=== PATIENT | female | born 1955 | race Caucasian/White ===

== ENCOUNTER → 2018-05-23 07:50 | Outpatient (CLI) | payer OTHER, SELFPAY ==
[2018-05-23 08:53] LABS: Add Manual Diff / Slide Review NO; Basophils Percent Auto 0.5 % (0-2); Eosinophils Percent Auto 3.1 % (2-4); Hematocrit 44.1 % (36-46); Hemoglobin 15.1 g/dL (12.0-16.0); Lymphocytes Percent Auto 20.1 % (25-40); Mean Corpuscular HGB Conc 34.2 % (30-36); Mean Corpuscular Hemoglobin 29.4 PG (26-34); Mean Corpuscular Volume 85.9 fL (80-100); Monocytes Percent Auto 7.5 % (3-14); Neutrophils Absolute Auto 5500 /uL (3000-5900); Neutrophils Percent Auto 68.8 % (50-75); Platelet Count 179 X10^3/uL (150-400); Red Blood Cell Count 5.13 X10^6/uL (4.0-5.2); Red Cell Distribution Width 13.7 % (11.6-14.8)
[2018-05-23 09:04] LABS: Alanine Aminotransferase 54 IU/L (9-52); Albumin 4.3 g/dL (3.5-5.0); Albumin Globulin Ratio 1.5 (1.0-2.8); Alkaline Phosphatase 64 U/L (38-126); Aspartate Aminotransferase 33 IU/L (14-36); BUN Creatinine Ratio 18.8 (6-22); Bilirubin Total 0.6 mg/dL (0.2-1.3); Blood Urea Nitrogen 15 mg/dL (7-17); Calcium 9.2 mg/dL (8.4-10.2); Carbon Dioxide 29 mmol/L (22-32); Chloride 102 mmol/L (98-107); Estimated Glomerular Filt Rate > 60.0 mL/min (>60); Globulin 2.8 g/dL (1.7-4.1); Glucose 132 mg/dL (80-110); HEMOLYSIS < 15 (0-50); Potassium 4.2 mmol/L (3.4-5.1); Sodium 143 mmol/L (137-145); Total Protein 7.1 g/dL (6.3-8.2)
[2018-05-23 14:18] LABS: Cholesterol 141 mg/dL (140-199); HDL Cholesterol 39 mg/dL (40-60); LDL Cholesterol Calculated 79 mg/dL (<100); Triglycerides 116 mg/dL (35-150)
[2018-05-23 14:35] LABS: Vitamin D 25 Hydroxy (D3) 21.6 ng/mL (30.0-100.0)
[2018-05-24 16:04] LABS: Hemoglobin A1C% w Est Avg Glu 6.2 % (4.0-6.0)
== END ==
PROVIDERS: PCP Family Medicine; Visit Provider Family Medicine
DX: I10 Essential (primary) hypertension (principal); E78.5 Hyperlipidemia, unspecified; E55.9 Vitamin D deficiency, unspecified; E66.9 Obesity, unspecified; R73.09 Other abnormal glucose
CPT/HCPCS: 36415; 80053; 80061; 82306; 83036; 85025

== ENCOUNTER → 2018-11-17 12:39 | Outpatient (CLI) | payer OTHER, SELFPAY ==
[2018-11-17 13:19] LABS: Hemoglobin A1C% w Est Avg Glu 5.9 % (4.0-6.0)
[2018-11-17 15:10] LABS: Vitamin D 25 Hydroxy (D3) 34.9 ng/mL (30.0-100.0)
== END ==
PROVIDERS: PCP Family Medicine; Visit Provider Family Medicine
DX: R73.03 Prediabetes (principal); R79.89 Other specified abnormal findings of blood chemistry
CPT/HCPCS: 36415; 82306; 83036

== ENCOUNTER 2018-11-23 10:59 | Emergency (ER) | payer OTHER, SELFPAY ==
[2018-11-23 11:08] VITALS: BP 200/100; PULSE 72; RESP 20; TEMP 36.5; O2SAT 99; BMI 41.8
--- NOTE | 2018-11-23 11:21 | DI.RAD.S_ITS ---
PROCEDURE: XR CHEST 1V INDICATIONS: chest pain TECHNIQUE: One view of the chest was acquired. COMPARISON: [facility], , CHEST 2 VIEW, 05/18/2011, 9:49. FINDINGS: Surgical changes and devices: None. Lungs and pleura: Lungs are clear. No pleural effusions or pneumothorax. Mediastinum: Mediastinal contours appear normal. Heart size is normal. Bones and chest wall: No suspicious bony lesions. Overlying soft tissues appear unremarkable. IMPRESSION: Normal for age, source of current chest pain symptoms is not seen. Dictated by: David Welsh M.D. on 11/23/2018 at 11:49 Approved by: David Welsh M.D. on 11/23/2018 at 11:49
[2018-11-23 11:43] VITALS: BP 164/72; PULSE 69; RESP 17; O2SAT 98
[2018-11-23 11:50] LABS: Add Manual Diff / Slide Review NO; Basophils Absolute Auto 100 /uL (0-100); Basophils Percent Auto 1.1 % (0-2); Eosinophils Absolute Auto 200 /uL (0-450); Eosinophils Percent Auto 2.2 % (2-4); Hematocrit 45.3 % (36-46); Hemoglobin 15.4 g/dL (12.0-16.0); Lymphocytes Absolute Auto 1500 /uL (1100-4500); Lymphocytes Percent Auto 16.5 % (25-40); Mean Corpuscular Hemoglobin 29.1 PG (26-34); Mean Corpuscular Volume 85.5 fL (80-100); Monocytes Absolute Auto 600 /uL (0-900); Monocytes Percent Auto 6.9 % (3-14); Neutrophils Absolute Auto 6500 /uL (1500-7000); Neutrophils Percent Auto 73.3 % (50-75); Platelet Count 193 X10^3/uL (150-400); Red Cell Distribution Width 13.7 % (11.6-14.8); White Blood Cell Count 8.9 X10^3/uL (4.5-11.0)
[2018-11-23 11:59] LABS: INR 1.1 (0.9-1.3); Prothrombin Time 12.7 SECONDS (10.1-12.7)
[2018-11-23 12:02] LABS: PTT Partial Thromboplastin Tim 34 SECONDS (26.4-36.2)
[2018-11-23 12:04] LABS: Alanine Aminotransferase 45 IU/L (9-52); Albumin 4.3 g/dL (3.5-5.0); Albumin Globulin Ratio 1.4 (1.0-2.8); Alkaline Phosphatase 85 U/L (38-126); Aspartate Aminotransferase 30 IU/L (14-36); BUN Creatinine Ratio 21.4 (6-22); Bilirubin Total 0.5 mg/dL (0.2-1.3); Blood Urea Nitrogen 15 mg/dL (7-17); Calcium 9.4 mg/dL (8.4-10.2); Carbon Dioxide 28 mmol/L (22-32); Chloride 102 mmol/L (98-107); Creatine Kinase 157 U/L (30-135); Estimated Glomerular Filt Rate > 60.0 mL/min (>60); Glucose 120 mg/dL (80-110); HEMOLYSIS < 15 (0-50); Lipase 82 U/L (23-300); Potassium 4.1 mmol/L (3.4-5.1); Sodium 140 mmol/L (137-145); Total Protein 7.3 g/dL (6.3-8.2)
[2018-11-23 12:16] LABS: Troponin I < 0.012 ng/mL (0.01-0.034)
[2018-11-23 12:19] LABS: CKMB % Relative Index 1.2 % (1.5-5.0); Creatine Kinase MB 1.94 ng/mL (<2.37)
[2018-11-23 12:30] VITALS: BP 164/69; PULSE 80; RESP 18; O2SAT 98
--- NOTE | 2018-11-23 12:47 | DI.CT.S_ITS ---
PROCEDURE: CT HEAD/BRAIN WO CON INDICATIONS: htnsive, headache TECHNIQUE: Noncontrast 4.5 mm thick angled axial sections acquired from the foramen magnum to the vertex, with coronal and sagittal reformats. For radiation dose reduction, the following was used: automated exposure control, adjustment of mA and/or kV according to patient size. COMPARISON: None. FINDINGS: Image quality: Excellent. CSF spaces: Basal cisterns are patent. No extra-axial fluid collections. Ventricles are normal in size and shape. Brain: No midline shift. No intracranial masses or hemorrhage. Costa-white matter interface is normal. Skull and face: Calvarium and visualized facial bones are intact, without suspicious lesions. Sinuses: Visualized sinuses and mastoids are clear. IMPRESSION: No evidence of acute stroke, hemorrhage, or mass. Negative head CT Dictated by: Dre Membreno M.D. on 11/23/2018 at 13:24 Approved by: Dre Membreno M.D. on 11/23/2018 at 13:29
[2018-11-23 14:05] VITALS: BP 119/89; PULSE 71
--- NOTE | 2018-11-23 14:50 | ED.GENADULT ---
HPI - General Adult <Virginia Rawls [employer] ASSEMBLER-BC - Last Filed: 11/23/18 19:13> General Chief complaint: Hypertension Stated complaint: high blood pressure 210 Time Seen by Provider: 11/23/18 12:36 Source: patient Mode of arrival: ambulatory Limitations: no limitations History of Present Illness HPI narrative: The patient is a 63-year-old female nonsmoker with history of hypertension anxiety who presents with a chief complaint of hypertension. She states that her blood pressure was noted to be in the 170s yesterday at her PCP visit. This morning she felt woozy and out of sorts at work. Her blood pressure was taken was found be 210 systolic. She denies any chest pain or shortness of breath. She complains of continued headache and slight dizziness. She denies any thunderclap sensation. She states she was very stressed at work this morning. Related Data Home Medications Medication Instructions Recorded Confirmed aspirin 81 - 162 mg PO QPM #0 02/24/11 11/23/18 Fish Oil 1 cap PO DAILY #0 02/15/13 11/23/18 cholecalciferol (vitamin D3) 2,000 2,000 unit PO DAILY 03/22/18 11/23/18 unit capsule atenolol 100 mg PO DAILY 11/23/18 11/23/18 atorvastatin [Lipitor] 20 mg PO DAILY 11/23/18 11/23/18 epinephrine 0.3 mg IM PRN PRN 11/23/18 11/23/18 losartan 100 mg PO DAILY 11/23/18 11/23/18 triamterene-hydrochlorothiazid 1 tab PO DAILY 11/23/18 11/23/18 Previous Rx's Medication Instructions Recorded Zostavax (PF) 0.5 ml SQ SEE INSTRUCTIONS #1 dose 03/19/17 albuterol sulfate [Ventolin HFA] 2 puff INH Q4HWA #1 ea 08/20/17 alprazolam 0.5 mg tablet 0.5 mg PO SEE INSTRUCTIONS PRN #10 11/24/17 tab fluticasone propionate 1 spray INTRANASAL BID #16 gm 06/15/18 Allergies Allergy/AdvReac Type Severity Reaction Status Date / Time amoxicillin [AMOXICILLIN] Allergy Mild HIVES Verified 11/23/18 11:13 Penicillins [PENICILLINS] Allergy Mild HIVES Verified 11/23/18 11:13 Sulfa (Sulfonamide Allergy Mild HIVES Verified 11/23/18 11:13 Antibiotics) [SULFA (SULFONAMIDE ANTIBIOTICS)] bee venom protein (honey bee) Allergy Unknown tongue Verified 11/23/18 11:13 [BEE VENOM PROTEIN (HONEY pain & BEE)] swelling soy [SOY] Allergy Unknown painful Verified 11/23/18 11:13 tongue Review of Systems <CHARI Ronquillo - Last Filed: 11/23/18 19:13> Review of Systems GENERAL: Denies chills, fatigue, malaise, fever, sweats. HEENT: Denies sinus pain, ear pain, sore throat, difficulty swallowing, dizziness. RESPIRATORY: Denies dyspnea, cough, wheezing, hemoptysis, sputum. CARDIOVASCULAR: Denies chest pain, palpitations, orthopnea, edema, GASTROINTESTINAL: Denies nausea, vomiting, abdominal pain, diarrhea, constipation, melena. : Denies dysuria, frequency, incontinence, hematuria, urinary retention. MUSCULOSKELETAL: denies weakness, joint pain, or bony pain SKIN: Denies rash, skin lesions, or other NEUROLOGIC: See HPI PSYCHIATRIC: No concerning psychosocial issues. 12 point review of systems is negative except for those stated above PFSH <CHARI Ronquillo - Last Filed: 11/23/18 19:13> Medical History Pre-diabetes (Chronic) CRP elevated (Chronic) Endometriosis (Chronic) Hyperlipidemia (Chronic) Hypertension (Chronic) Kidney stones (Chronic) Surgical History History of orthopedic surgery (Resolved) History of tonsillectomy (Resolved) Status post endometrial ablation (Resolved) Status post laparoscopy (Resolved) Family History (Updated 03/15/18 @ 12:53 by Sindhu Felix) Sister Breast cancer Mother Polycythemia vera Family/Other Colorectal cancer Brother Diabetes mellitus Social History marital status: household members: none lives independently: Yes caregiver/support person: No housing: house education level: college occupational status: employed Smoking Status: Never smoker second hand exposure: No alcohol intake: never substance use type: does not use Family History Sister Breast cancer Mother Polycythemia vera Family/Other Colorectal cancer Brother Diabetes mellitus Social History marital status: household members: none lives independently: Yes caregiver/support person: No housing: house education level: college occupational status: employed Smoking Status: Never smoker second hand exposure: No alcohol intake: never substance use type: does not use Exam <CHARI Ronquillo - Last Filed: 11/23/18 19:13> Narrative Exam Narrative: GENERAL: This is a well-nourished, well-developed patient, no acute distress HEAD: Atraumatic. Normocephalic. No temporal or scalp tenderness. EYES: Pupils equal round and reactive. Extraocular motions intact. No scleral icterus. No injection or drainage. ENT: Nose without bleeding, purulent drainage or septal hematoma. Throat without erythema, tonsillar hypertrophy or exudate. Uvula midline. Airway patent. NECK: Trachea midline. No JVD or lymphadenopathy. Supple, nontender, no meningeal signs. CARDIOVASCULAR: Regular rate and rhythm without murmurs, gallops, or rubs. RESPIRATORY: Clear to auscultation. Breath sounds equal bilaterally. No wheezes, rales, or rhonchi. No cough. No increased respiratory effort. No accessory muscle use. GASTROINTESTINAL: Abdomen soft, non-tender, nondistended. No hepato-splenomegaly, or palpable masses. No guarding. EXTREMITIES: No clubbing, cyanosis, or edema. No joint tenderness, effusion, or edema noted. BACK: Nontender without deformity or crepitance. No flank tenderness. NEURO: AOx3. Strength is equal upper and lower extremities bilaterally. Slight mouth droop noted on right side, patient states this is normal for her. No gross cranial nerve deficit. Clear speech. SKIN: No rash or erythema. Initial Vital Signs Initial Vital Signs: Vital Signs Temperature 97.7 F 11/23/18 11:08 Pulse Rate 72 11/23/18 11:08 Respiratory Rate 20 11/23/18 11:08 Blood Pressure 200/100 H 11/23/18 11:08 Pulse Oximetry 99 11/23/18 11:08 <Virginia Macias DO - Last Filed: 11/23/18 19:31> Initial Vital Signs Initial Vital Signs: Vital Signs Temperature 97.7 F 11/23/18 11:08 Pulse Rate 72 11/23/18 11:08 Respiratory Rate 20 11/23/18 11:08 Blood Pressure 200/100 H 11/23/18 11:08 Pulse Oximetry 99 11/23/18 11:08 Course <PATEL Ronquillo-BC - Last Filed: 11/23/18 19:13> Orders Ordered: ED Orders 11/23/18 11:14 EKG-12 Lead Stat 11/23/18 11:21 XR chest 1V Stat 11/23/18 11:40 Complete Blood Count AUTO DIFF Stat Comprehensive Metabolic Panel Stat Lipase Stat Partial Thromboplastin Time Stat Prothrombin Time INR Stat Troponin & CK Cardiac Panel Stat 11/23/18 12:47 CT head/brain wo con Stat 11/23/18 14:50 Troponin & CK Cardiac Panel Stat Vital Signs - 8 hr 11/23/18 11:43 11/23/18 12:30 11/23/18 14:05 Pulse Rate 69 80 71 Respiratory Rate 17 18 Blood Pressure [Left Arm] 164/72 H 164/69 H 119/89 Pulse Oximetry 98 98 11/23/18 14:59 11/23/18 15:50 Pulse Rate 71 70 Respiratory Rate 14 18 Blood Pressure [Left Arm] 155/69 H 148/72 H Pulse Oximetry 98 98 <Virginia Macias DO - Last Filed: 11/23/18 19:31> Orders Ordered: ED Orders 11/23/18 11:14 EKG-12 Lead Stat 11/23/18 11:21 XR chest 1V Stat 11/23/18 11:40 Complete Blood Count AUTO DIFF Stat Comprehensive Metabolic Panel Stat Lipase Stat Partial Thromboplastin Time Stat Prothrombin Time INR Stat Troponin & CK Cardiac Panel Stat 11/23/18 12:47 CT head/brain wo con Stat 11/23/18 14:50 Troponin & CK Cardiac Panel Stat Vital Signs - 8 hr 11/23/18 11:43 11/23/18 12:30 11/23/18 14:05 Pulse Rate 69 80 71 Respiratory Rate 17 18 Blood Pressure [Left Arm] 164/72 H 164/69 H 119/89 Pulse Oximetry 98 98 11/23/18 14:59 11/23/18 15:50 Pulse Rate 71 70 Respiratory Rate 14 18 Blood Pressure [Left Arm] 155/69 H 148/72 H Pulse Oximetry 98 98 Medical Decision Making <Virginia Rawls, D[employer] ASSEMBLER-BC - Last Filed: 11/23/18 19:13> Lab Data Result diagrams: 11/23/18 11:40 11/23/18 11:40 Lab Results 11/23/18 11/23/18 11/23/18 Range/Units 11:40 11:40 11:40 WBC 8.9 (4.5-11.0) X10^3/uL RBC 5.30 H (4.0-5.2) X10^6/uL Hgb 15.4 (12.0-16.0) g/dL Hct 45.3 (36-46) % MCV 85.5 (80-100) fL MCH 29.1 (26-34) PG MCHC 34.0 (30-36) % RDW 13.7 (11.6-14.8) % Plt Count 193 (150-400) X10^3/uL Neut % (Auto) 73.3 (50-75) % Lymph % (Auto) 16.5 L (25-40) % Boone % (Auto) 6.9 (3-14) % Eos % (Auto) 2.2 (2-4) % Baso % (Auto) 1.1 (0-2) % Neut # (Auto) 6500 (9467-5041) /uL Lymph # (Auto) 1500 (1634-9929) /uL Boone # (Auto) 600 (0-900) /uL Eos # (Auto) 200 (0-450) /uL Baso # (Auto) 100 (0-100) /uL PT 12.7 (10.1-12.7) SECONDS INR 1.1 (0.9-1.3) APTT 34 (26.4-36.2) SECONDS Sodium 140 (137-145) mmol/L Potassium 4.1 (3.4-5.1) mmol/L Chloride 102 (98-107) mmol/L Carbon Dioxide 28 (22-32) mmol/L BUN 15 (7-17) mg/dL Creatinine 0.70 (0.52-1.04) mg/dL Estimated GFR > 60.0 (>60) mL/min BUN/Creatinine Ratio 21.4 (6-22) Glucose 120 H (80-110) mg/dL Calcium 9.4 (8.4-10.2) mg/dL Total Bilirubin 0.5 (0.2-1.3) mg/dL AST 30 (14-36) IU/L ALT 45 (9-52) IU/L Alkaline Phosphatase 85 (38-126) U/L Total Creatine Kinase 157 H (30-135) U/L CK-MB (CK-2) 1.94 (<2.37) ng/mL CK-MB (CK-2) Rel Index 1.2 L (1.5-5.0) % Troponin I < 0.012 (0.01-0.034) ng/mL Total Protein 7.3 (6.3-8.2) g/dL Albumin 4.3 (3.5-5.0) g/dL Globulin 3.0 (1.7-4.1) g/dL Albumin/Globulin Ratio 1.4 (1.0-2.8) Lipase 82 (23-300) U/L 11/23/18 Range/Units 14:50 WBC (4.5-11.0) X10^3/uL RBC (4.0-5.2) X10^6/uL Hgb (12.0-16.0) g/dL Hct (36-46) % MCV (80-100) fL MCH (26-34) PG MCHC (30-36) % RDW (11.6-14.8) % Plt Count (150-400) X10^3/uL Neut % (Auto) (50-75) % Lymph % (Auto) (25-40) % Boone % (Auto) (3-14) % Eos % (Auto) (2-4) % Baso % (Auto) (0-2) % Neut # (Auto) (3481-4508) /uL Lymph # (Auto) (6628-6137) /uL Boone # (Auto) (0-900) /uL Eos # (Auto) (0-450) /uL Baso # (Auto) (0-100) /uL PT (10.1-12.7) SECONDS INR (0.9-1.3) APTT (26.4-36.2) SECONDS Sodium (137-145) mmol/L Potassium (3.4-5.1) mmol/L Chloride (98-107) mmol/L Carbon Dioxide (22-32) mmol/L BUN (7-17) mg/dL Creatinine (0.52-1.04) mg/dL Estimated GFR (>60) mL/min BUN/Creatinine Ratio (6-22) Glucose (80-110) mg/dL Calcium (8.4-10.2) mg/dL Total Bilirubin (0.2-1.3) mg/dL AST (14-36) IU/L ALT (9-52) IU/L Alkaline Phosphatase (38-126) U/L Total Creatine Kinase 191 H (30-135) U/L CK-MB (CK-2) 1.75 (<2.37) ng/mL CK-MB (CK-2) Rel Index 0.9 L (1.5-5.0) % Troponin I < 0.012 (0.01-0.034) ng/mL Total Protein (6.3-8.2) g/dL Albumin (3.5-5.0) g/dL Globulin (1.7-4.1) g/dL Albumin/Globulin Ratio (1.0-2.8) Lipase (23-300) U/L Urine Dip Bedside Urine Glucose Negative Bedside Urine Bilirubin - Negative Bedside Urine Ketone - Negative Urine Specific Alvord 1.015 Bedside Urine Occult Blood - Negative Bedside Urine pH 6.5 Bedside Urine Protein +/- 15 Bedside Urine Urobilinogen - Negative Bedside Urine Nitrite - Negative Bedside Urine Leukocytes - Negative Esterase Point of care testing: Urine Dip Bedside Urine Glucose Negative Bedside Urine Bilirubin - Negative Bedside Urine Ketone - Negative Urine Specific Alvord 1.015 Bedside Urine Occult Blood - Negative Bedside Urine pH 6.5 Bedside Urine Protein +/- 15 Bedside Urine Urobilinogen - Negative Bedside Urine Nitrite - Negative Bedside Urine Leukocytes - Negative Esterase Imaging Data Head CT: Radiologist's impression: [address] [address] [address] Scan Report Signed Patient: Flori Powell LMR#: [id number] : 7Acct:[id number] Age/Sex: 63 / FDate of Service: 11/23/18 Loc: ED Accession Number: [id number] Procedure: CT head/brain wo con Ordering Provider: Virginia RawlsBC PROCEDURE: CT HEAD/BRAIN WO CON INDICATIONS: htnsive, headache TECHNIQUE: Noncontrast 4.5 mm thick angled axial sections acquired from the foramen magnum to the vertex, with coronal and sagittal reformats. For radiation dose reduction, the following was used: automated exposure control, adjustment of mA and/or kV according to patient size. COMPARISON: None. FINDINGS: Image quality: Excellent. CSF spaces: Basal cisterns are patent. No extra-axial fluid collections. Ventricles are normal in size and shape. Brain: No midline shift. No intracranial masses or hemorrhage. Costa-white matter interface is normal. Skull and face: Calvarium and visualized facial bones are intact, without suspicious lesions. Sinuses: Visualized sinuses and mastoids are clear. IMPRESSION: No evidence of acute stroke, hemorrhage, or mass. Negative head CT Dictated by: Dre Membreno M.D. on 11/23/2018 at 13:24 Approved by: Dre Membreno M.D. on 11/23/2018 at 13:29 Chest x-ray: Radiologist's impression: Flori Powell 63 F 1955 [place] [address] XRay Report Signed Patient: Flori Powell LMR#: [id number] : 1955cct:[id number] Age/Sex: 63 / FDate of Service: 11/23/18 Loc: ED Accession Number: [id number] Procedure: XR chest 1V Ordering Provider: Virginia Macias D.O. PROCEDURE: XR CHEST 1V INDICATIONS: chest pain TECHNIQUE: One view of the chest was acquired. COMPARISON: [facility], , CHEST 2 VIEW, 05/18/2011, 9:49. FINDINGS: Surgical changes and devices: None. Lungs and pleura: Lungs are clear. No pleural effusions or pneumothorax. Mediastinum: Mediastinal contours appear normal. Heart size is normal. Bones and chest wall: No suspicious bony lesions. Overlying soft tissues appear unremarkable. IMPRESSION: Normal for age, source of current chest pain symptoms is not seen. Dictated by: David Welsh M.D. on 11/23/2018 at 11:49 Approved by: David Welsh M.D. on 11/23/2018 at 11:49 ECG Data Attestation: I personally reviewed and interpreted this ECG as follows: Interpretation: Sinus rhythm. Ventricular rate 69. No ectopy noted. No ST elevation or depression noted. viewed by Dr Macias 11:21 MDM Narrative Medical decision making narrative: The patient is a 63-year-old female who presents with a chief complaint of hypertension earlier today. She has 2 negative troponins, normal head CT normal chest x-ray grossly normal lab work. During her stay in the emergency department, her blood pressure ranged from 130-150 systolic. Upon discharge she felt much improved and expressed desire to go home. I discussed at length that she is to follow up with her primary care provider. Given that her systolic towards the end of her emergency department stay was 130, I did not feel the need to change her blood pressure regimen as well. I did discuss that she needs to follow up with primary care provider. Discussed at length rest at home over the next few days, as well as come back to the emergency department for any acute concerns such as chest pain, shortness of breath concern of heart attack or stroke. <Virginia Macias, DO - Last Filed: 11/23/18 19:31> Lab Data Lab results reviewed: Yes I reviewed the patient's lab results. Lab Results 11/23/18 11/23/18 11/23/18 Range/Units 11:40 11:40 11:40 WBC 8.9 (4.5-11.0) X10^3/uL RBC 5.30 H (4.0-5.2) X10^6/uL Hgb 15.4 (12.0-16.0) g/dL Hct 45.3 (36-46) % MCV 85.5 (80-100) fL MCH 29.1 (26-34) PG MCHC 34.0 (30-36) % RDW 13.7 (11.6-14.8) % Plt Count 193 (150-400) X10^3/uL Neut % (Auto) 73.3 (50-75) % Lymph % (Auto) 16.5 L (25-40) % Boone % (Auto) 6.9 (3-14) % Eos % (Auto) 2.2 (2-4) % Baso % (Auto) 1.1 (0-2) % Neut # (Auto) 6500 (0430-0204) /uL Lymph # (Auto) 1500 (3928-3733) /uL Boone # (Auto) 600 (0-900) /uL Eos # (Auto) 200 (0-450) /uL Baso # (Auto) 100 (0-100) /uL PT 12.7 (10.1-12.7) SECONDS INR 1.1 (0.9-1.3) APTT 34 (26.4-36.2) SECONDS Sodium 140 (137-145) mmol/L Potassium 4.1 (3.4-5.1) mmol/L Chloride 102 (98-107) mmol/L Carbon Dioxide 28 (22-32) mmol/L BUN 15 (7-17) mg/dL Creatinine 0.70 (0.52-1.04) mg/dL Estimated GFR > 60.0 (>60) mL/min BUN/Creatinine Ratio 21.4 (6-22) Glucose 120 H (80-110) mg/dL Calcium 9.4 (8.4-10.2) mg/dL Total Bilirubin 0.5 (0.2-1.3) mg/dL AST 30 (14-36) IU/L ALT 45 (9-52) IU/L Alkaline Phosphatase 85 (38-126) U/L Total Creatine Kinase 157 H (30-135) U/L CK-MB (CK-2) 1.94 (<2.37) ng/mL CK-MB (CK-2) Rel Index 1.2 L (1.5-5.0) % Troponin I < 0.012 (0.01-0.034) ng/mL Total Protein 7.3 (6.3-8.2) g/dL Albumin 4.3 (3.5-5.0) g/dL Globulin 3.0 (1.7-4.1) g/dL Albumin/Globulin Ratio 1.4 (1.0-2.8) Lipase 82 (23-300) U/L 11/23/18 Range/Units 14:50 WBC (4.5-11.0) X10^3/uL RBC (4.0-5.2) X10^6/uL Hgb (12.0-16.0) g/dL Hct (36-46) % MCV (80-100) fL MCH (26-34) PG MCHC (30-36) % RDW (11.6-14.8) % Plt Count (150-400) X10^3/uL Neut % (Auto) (50-75) % Lymph % (Auto) (25-40) % Boone % (Auto) (3-14) % Eos % (Auto) (2-4) % Baso % (Auto) (0-2) % Neut # (Auto) (0564-6671) /uL Lymph # (Auto) (7799-8173) /uL Boone # (Auto) (0-900) /uL Eos # (Auto) (0-450) /uL Baso # (Auto) (0-100) /uL PT (10.1-12.7) SECONDS INR (0.9-1.3) APTT (26.4-36.2) SECONDS Sodium (137-145) mmol/L Potassium (3.4-5.1) mmol/L Chloride (98-107) mmol/L Carbon Dioxide (22-32) mmol/L BUN (7-17) mg/dL Creatinine (0.52-1.04) mg/dL Estimated GFR (>60) mL/min BUN/Creatinine Ratio (6-22) Glucose (80-110) mg/dL Calcium (8.4-10.2) mg/dL Total Bilirubin (0.2-1.3) mg/dL AST (14-36) IU/L ALT (9-52) IU/L Alkaline Phosphatase (38-126) U/L Total Creatine Kinase 191 H (30-135) U/L CK-MB (CK-2) 1.75 (<2.37) ng/mL CK-MB (CK-2) Rel Index 0.9 L (1.5-5.0) % Troponin I < 0.012 (0.01-0.034) ng/mL Total Protein (6.3-8.2) g/dL Albumin (3.5-5.0) g/dL Globulin (1.7-4.1) g/dL Albumin/Globulin Ratio (1.0-2.8) Lipase (23-300) U/L Urine Dip Bedside Urine Glucose Negative Bedside Urine Bilirubin - Negative Bedside Urine Ketone - Negative Urine Specific Alvord 1.015 Bedside Urine Occult Blood - Negative Bedside Urine pH 6.5 Bedside Urine Protein +/- 15 Bedside Urine Urobilinogen - Negative Bedside Urine Nitrite - Negative Bedside Urine Leukocytes - Negative Esterase Point of care testing: Urine Dip Bedside Urine Glucose Negative Bedside Urine Bilirubin - Negative Bedside Urine Ketone - Negative Urine Specific Alvord 1.015 Bedside Urine Occult Blood - Negative Bedside Urine pH 6.5 Bedside Urine Protein +/- 15 Bedside Urine Urobilinogen - Negative Bedside Urine Nitrite - Negative Bedside Urine Leukocytes - Negative Esterase ECG Data Attestation: I personally reviewed and interpreted this ECG as follows: Interpretation: Sinus rhythm, rate of 69 LA 176 QRS of 90 QTC of 413. No obvious ST changes. No priors. Discharge Plan Departure Patient Disposition: Home Clinical Impression: Hypertension Qualifiers: Hypertension type: unspecified Qualified Code(s): I10 - Essential (primary) hypertension Discharge Date/Time: 11/23/18 16:13 Interventions: ED Discharge Assessment Last Done: 11/23/18 16:11 Instructions: DI for High Blood Pressure Activity Restrictions/Additional Instructions: Thank you for trusting us with your care today. Please follow up with primary care provider soon as possible. Today you had a normal chest x-ray, normal head CT, normal lab work including electrolytes, kidney function and 2 sets of negative cardiac enzymes. Your blood pressure has been good throughout your stay in the emergency department. It is so good that I do not want to change her medications in the emergency department at this point time. Please come back to emergency department for any acute concerns such as chest pain, shortness of breath concern of heart attack or stroke Prescriptions: No Action aspirin 81 MG tablet,delayed release (DR/EC) 81 - 162 mg PO QPM Qty: 0 RF: 0 Fish Oil 1 cap PO DAILY Qty: 0 RF: 0 Zostavax (PF) 19,400 UNIT/0.65 ML suspension for reconstitution 0.5 ml SQ SEE INSTRUCTIONS Qty: 1 RF: 0 albuterol sulfate [Ventolin HFA] 90 MCG/PUFF HFA aerosol inhaler 2 puff INH Q4HWA Qty: 1 RF: 4 alprazolam 0.5 mg tablet 0.5 mg PO SEE INSTRUCTIONS PRN (Reason: anxiety) Qty: 10 RF: 0 fluticasone propionate 50 mcg/actuation spray,suspension 1 spray Intranasal BID Qty: 16 RF: 11 cholecalciferol (vitamin D3) 2,000 unit capsule 2,000 unit PO DAILY RF: 0 atorvastatin [Lipitor] 20 mg tablet 20 mg PO DAILY RF: 0 atenolol 100 mg tablet 100 mg PO DAILY RF: 0 triamterene-hydrochlorothiazid 37.5-25 mg tablet 1 tab PO DAILY RF: 0 losartan 100 mg tablet 100 mg PO DAILY RF: 0 epinephrine 0.3 MG/0.3 ML auto-injector 0.3 mg IM PRN PRN (Reason: bee sting) RF: 0 Referrals: Lorena Owens MD [Primary Care Provider] -
--- NOTE | 2018-11-23 14:54 | ED_ITS ---
HPI - General Adult <Virginia Rawls [employer]-BC - Last Filed: 11/23/18 19:13> General Chief complaint: Hypertension Stated complaint: high blood pressure 210 Time Seen by Provider: 11/23/18 12:36 Source: patient Mode of arrival: ambulatory Limitations: no limitations History of Present Illness HPI narrative: The patient is a 63-year-old female nonsmoker with history of hypertension anxiety who presents with a chief complaint of hypertension. She states that her blood pressure was noted to be in the 170s yesterday at her PCP visit. This morning she felt woozy and out of sorts at work. Her blood pressure was taken was found be 210 systolic. She denies any chest pain or shortness of breath. She complains of continued headache and slight dizziness. She denies any thunderclap sensation. She states she was very stressed at work this morning. Related Data Home Medications Medication Instructions Recorded Confirmed aspirin 81 - 162 mg PO QPM #0 02/24/11 11/23/18 Fish Oil 1 cap PO DAILY #0 02/15/13 11/23/18 cholecalciferol (vitamin D3) 2,000 2,000 unit PO DAILY 03/22/18 11/23/18 unit capsule atenolol 100 mg PO DAILY 11/23/18 11/23/18 atorvastatin [Lipitor] 20 mg PO DAILY 11/23/18 11/23/18 epinephrine 0.3 mg IM PRN PRN 11/23/18 11/23/18 losartan 100 mg PO DAILY 11/23/18 11/23/18 triamterene-hydrochlorothiazid 1 tab PO DAILY 11/23/18 11/23/18 Previous Rx's Medication Instructions Recorded Zostavax (PF) 0.5 ml SQ SEE INSTRUCTIONS #1 dose 03/19/17 albuterol sulfate [Ventolin HFA] 2 puff INH Q4HWA #1 ea 08/20/17 alprazolam 0.5 mg tablet 0.5 mg PO SEE INSTRUCTIONS PRN #10 11/24/17 tab fluticasone propionate 1 spray INTRANASAL BID #16 gm 06/15/18 Allergies Allergy/AdvReac Type Severity Reaction Status Date / Time amoxicillin [AMOXICILLIN] Allergy Mild HIVES Verified 11/23/18 11:13 Penicillins [PENICILLINS] Allergy Mild HIVES Verified 11/23/18 11:13 Sulfa (Sulfonamide Allergy Mild HIVES Verified 11/23/18 11:13 Antibiotics) [SULFA (SULFONAMIDE ANTIBIOTICS)] bee venom protein (honey bee) Allergy Unknown tongue Verified 11/23/18 11:13 [BEE VENOM PROTEIN (HONEY pain & BEE)] swelling soy [SOY] Allergy Unknown painful Verified 11/23/18 11:13 tongue Review of Systems <CHARI Ronquillo - Last Filed: 11/23/18 19:13> Review of Systems GENERAL: Denies chills, fatigue, malaise, fever, sweats. HEENT: Denies sinus pain, ear pain, sore throat, difficulty swallowing, diz ziness. RESPIRATORY: Denies dyspnea, cough, wheezing, hemoptysis, sputum. CARDIOVASCULAR: Denies chest pain, palpitations, orthopnea, edema, GASTROINTESTINAL: Denies nausea, vomiting, abdominal pain, diarrhea, constipation, melena. : Denies dysuria, frequency, incontinence, hematuria, urinary retention. MUSCULOSKELETAL: denies weakness, joint pain, or bony pain SKIN: Denies rash, skin lesions, or other NEUROLOGIC: See HPI PSYCHIATRIC: No concerning psychosocial issues. 12 point review of systems is negative except for those stated above PFSH <CHARI Ronquillo - Last Filed: 11/23/18 19:13> Medical History Pre-diabetes (Chronic) CRP elevated (Chronic) Endometriosis (Chronic) Hyperlipidemia (Chronic) Hypertension (Chronic) Kidney stones (Chronic) Surgical History History of orthopedic surgery (Resolved) History of tonsillectomy (Resolved) Status post endometrial ablation (Resolved) Status post laparoscopy (Resolved) Family History (Updated 03/15/18 @ 12:53 by Sindhu Felix) Sister Breast cancer Mother Polycythemia vera Family/Other Colorectal cancer Brother Diabetes mellitus Social History marital status: household members: none lives independently: Yes caregiver/support person: No housing: house education level: college occupational status: employed Smoking Status: Never smoker second hand exposure: No alcohol intake: never substance use type: does not use Family History Sister Breast cancer Mother Polycythemia vera Family/Other Colorectal cancer Brother Diabetes mellitus Social History marital status: household members: none lives independently: Yes caregiver/support person: No housing: house education level: college occupational status: employed Smoking Status: Never smoker second hand exposure: No alcohol intake: never substance use type: does not use Exam <CHARI Ronquillo - Last Filed: 11/23/18 19:13> Narrative Exam Narrative: GENERAL: This is a well-nourished, well-developed patient, no acute distress HEAD: Atraumatic. Normocephalic. No temporal or scalp tenderness. EYES: Pupils equal round and reactive. Extraocular motions intact. No scleral icterus. No injection or drainage. ENT: Nose without bleeding, purulent drainage or septal hematoma. Throat without erythema, tonsillar hypertrophy or exudate. Uvula midline. Airway patent. NECK: Trachea midline. No JVD or lymphadenopathy. Supple, nontender, no meningeal signs. CARDIOVASCULAR: Regular rate and rhythm without murmurs, gallops, or rubs. RESPIRATORY: Clear to auscultation. Breath sounds equal bilaterally. No wheezes, rales, or rhonchi. No cough. No increased respiratory effort. No accessory muscle use. GASTROINTESTINAL: Abdomen soft, non-tender, nondistended. No hepato- splenomegaly, or palpable masses. No guarding. EXTREMITIES: No clubbing, cyanosis, or edema. No joint tenderness, effusion, or edema noted. BACK: Nontender without deformity or crepitance. No flank tenderness. NEURO: AOx3. Strength is equal upper and lower extremities bilaterally. Slight mouth droop noted on right side, patient states this is normal for her. No gross cranial nerve deficit. Clear speech. SKIN: No rash or erythema. Initial Vital Signs Initial Vital Signs: Vital Signs Temperature 97.7 F 11/23/18 11:08 Pulse Rate 72 11/23/18 11:08 Respiratory Rate 20 11/23/18 11:08 Blood Pressure 200/100 H 11/23/18 11:08 Pulse Oximetry 99 11/23/18 11:08 <Virginia Macias DO - Last Filed: 11/23/18 19:31> Initial Vital Signs Initial Vital Signs: Vital Signs Temperature 97.7 F 11/23/18 11:08 Pulse Rate 72 11/23/18 11:08 Respiratory Rate 20 11/23/18 11:08 Blood Pressure 200/100 H 11/23/18 11:08 Pulse Oximetry 99 11/23/18 11:08 Course <PATEL Ronquillo-BC - Last Filed: 11/23/18 19:13> Orders Ordered: ED Orders 11/23/18 11:14 EKG-12 Lead Stat 11/23/18 11:21 XR chest 1V Stat 11/23/18 11:40 Complete Blood Count AUTO DIFF Stat Comprehensive Metabolic Panel Stat Lipase Stat Partial Thromboplastin Time Stat Prothrombin Time INR Stat Troponin & CK Cardiac Panel Stat 11/23/18 12:47 CT head/brain wo con Stat 11/23/18 14:50 Troponin & CK Cardiac Panel Stat Vital Signs - 8 hr 11/23/18 11:43 11/23/18 12:30 11/23/18 14:05 Pulse Rate 69 80 71 Respiratory Rate 17 18 Blood Pressure [Left Arm] 164/72 H 164/69 H 119/89 Pulse Oximetry 98 98 11/23/18 14:59 11/23/18 15:50 Pulse Rate 71 70 Respiratory Rate 14 18 Blood Pressure [Left Arm] 155/69 H 148/72 H Pulse Oximetry 98 98 <Virginia Macias DO - Last Filed: 11/23/18 19:31> Orders Ordered: ED Orders 11/23/18 11:14 EKG-12 Lead Stat 11/23/18 11:21 XR chest 1V Stat 11/23/18 11:40 Complete Blood Count AUTO DIFF Stat Comprehensive Metabolic Panel Stat Lipase Stat Partial Thromboplastin Time Stat Prothrombin Time INR Stat Troponin & CK Cardiac Panel Stat 11/23/18 12:47 CT head/brain wo con Stat 11/23/18 14:50 Troponin & CK Cardiac Panel Stat Vital Signs - 8 hr 11/23/18 11:43 11/23/18 12:30 11/23/18 14:05 Pulse Rate 69 80 71 Respiratory Rate 17 18 Blood Pressure [Left Arm] 164/72 H 164/69 H 119/89 Pulse Oximetry 98 98 11/23/18 14:59 11/23/18 15:50 Pulse Rate 71 70 Respiratory Rate 14 18 Blood Pressure [Left Arm] 155/69 H 148/72 H Pulse Oximetry 98 98 Medical Decision Making <Virginia Curly, [employer] - Last Filed: 11/23/18 19:13> Lab Data Result diagrams: 11/23/18 11:40 11/23/18 11:40 Lab Results 11/23/18 11/23/18 11/23/18 Range/Units 11:40 11:40 11:40 WBC 8.9 (4.5-11.0) X10^3/uL RBC 5.30 H (4.0-5.2) X10^6/uL Hgb 15.4 (12.0-16.0) g/dL Hct 45.3 (36-46) % MCV 85.5 (80-100) fL MCH 29.1 (26-34) PG MCHC 34.0 (30-36) % RDW 13.7 (11.6-14.8) % Plt Count 193 (150-400) X10^3/uL Neut % (Auto) 73.3 (50-75) % Lymph % (Auto) 16.5 L (25-40) % Haskell % (Auto) 6.9 (3-14) % Eos % (Auto) 2.2 (2-4) % Baso % (Auto) 1.1 (0-2) % Neut # (Auto) 6500 (3682-3912) /uL Lymph # (Auto) 1500 (5986-6628) /uL Haskell # (Auto) 600 (0-900) /uL Eos # (Auto) 200 (0-450) /uL Baso # (Auto) 100 (0-100) /uL PT 12.7 (10.1-12.7) SECONDS INR 1.1 (0.9-1.3) APTT 34 (26.4-36.2) SECONDS Sodium 140 (137-145) mmol/L Potassium 4.1 (3.4-5.1) mmol/L Chloride 102 (98-107) mmol/L Carbon Dioxide 28 (22-32) mmol/L BUN 15 (7-17) mg/dL Creatinine 0.70 (0.52-1.04) mg/dL Estimated GFR > 60.0 (>60) mL/min BUN/Creatinine Ratio 21.4 (6-22) Glucose 120 H (80-110) mg/dL Calcium 9.4 (8.4-10.2) mg/dL Total Bilirubin 0.5 (0.2-1.3) mg/dL AST 30 (14-36) IU/L ALT 45 (9-52) IU/L Alkaline Phosphatase 85 (38-126) U/L Total Creatine Kinase 157 H (30-135) U/L CK-MB (CK-2) 1.94 (<2.37) ng/mL CK-MB (CK-2) Rel Index 1.2 L (1.5-5.0) % Troponin I < 0.012 (0.01-0.034) ng/mL Total Protein 7.3 (6.3-8.2) g/dL Albumin 4.3 (3.5-5.0) g/dL Globulin 3.0 (1.7-4.1) g/dL Albumin/Globulin Ratio 1.4 (1.0-2.8) Lipase 82 (23-300) U/L 11/23/18 Range/Units 14:50 WBC (4.5-11.0) X10^3/uL RBC (4.0-5.2) X10^6/uL Hgb (12.0-16.0) g/dL Hct (36-46) % MCV (80-100) fL MCH (26-34) PG MCHC (30-36) % RDW (11.6-14.8) % Plt Count (150-400) X10^3/uL Neut % (Auto) (50-75) % Lymph % (Auto) (25-40) % Haskell % (Auto) (3-14) % Eos % (Auto) (2-4) % Baso % (Auto) (0-2) % Neut # (Auto) (9541-2945) /uL Lymph # (Auto) (6290-5167) /uL Haskell # (Auto) (0-900) /uL Eos # (Auto) (0-450) /uL Baso # (Auto) (0-100) /uL PT (10.1-12.7) SECONDS INR (0.9-1.3) APTT (26.4-36.2) SECONDS Sodium (137-145) mmol/L Potassium (3.4-5.1) mmol/L Chloride (98-107) mmol/L Carbon Dioxide (22-32) mmol/L BUN (7-17) mg/dL Creatinine (0.52-1.04) mg/dL Estimated GFR (>60) mL/min BUN/Creatinine Ratio (6-22) Glucose (80-110) mg/dL Calcium (8.4-10.2) mg/dL Total Bilirubin (0.2-1.3) mg/dL AST (14-36) IU/L ALT (9-52) IU/L Alkaline Phosphatase (38-126) U/L Total Creatine Kinase 191 H (30-135) U/L CK-MB (CK-2) 1.75 (<2.37) ng/mL CK-MB (CK-2) Rel Index 0.9 L (1.5-5.0) % Troponin I < 0.012 (0.01-0.034) ng/mL Total Protein (6.3-8.2) g/dL Albumin (3.5-5.0) g/dL Globulin (1.7-4.1) g/dL Albumin/Globulin Ratio (1.0-2.8) Lipase (23-300) U/L Urine Dip Bedside Urine Glucose Negative Bedside Urine Bilirubin - Negative Bedside Urine Ketone - Negative Urine Specific [place] 1.015 Bedside Urine Occult Blood - Negative Bedside Urine pH 6.5 Bedside Urine Protein +/- 15 Bedside Urine Urobilinogen - Negative Bedside Urine Nitrite - Negative Bedside Urine Leukocytes - Negative Esterase Point of care testing: Urine Dip Bedside Urine Glucose Negative Bedside Urine Bilirubin - Negative Bedside Urine Ketone - Negative Urine Specific [place] 1.015 Bedside Urine Occult Blood - Negative Bedside Urine pH 6.5 Bedside Urine Protein +/- 15 Bedside Urine Urobilinogen - Negative Bedside Urine Nitrite - Negative Bedside Urine Leukocytes - Negative Esterase Imaging Data Head CT: Radiologist's impression: [address] [address] [address] Scan Report Signed Patient: Flori Powell LMR#: [id number] : 7Acct:[id number] Age/Sex: 63 / FDate of Service: 11/23/18 Loc: ED Accession Number: [id number] Procedure: CT head/brain wo con Ordering Provider: Virginia Rawls-BC PROCEDURE: CT HEAD/BRAIN WO CON INDICATIONS: htnsive, headache TECHNIQUE: Noncontrast 4.5 mm thick angled axial sections acquired from the foramen magnum to the vertex, with coronal and sagittal reformats. For radiation dose reduction, the following was used: automated exposure control, adjustment of mA and/or kV according to patient size. COMPARISON: None. FINDINGS: Image quality: Excellent. CSF spaces: Basal cisterns are patent. No extra-axial fluid collections. Ventricles are normal in size and shape. Brain: No midline shift. No intracranial masses or hemorrhage. Costa-white matter interface is normal. Skull and face: Calvarium and visualized facial bones are intact, without suspicious lesions. Sinuses: Visualized sinuses and mastoids are clear. IMPRESSION: No evidence of acute stroke, hemorrhage, or mass. Negative head CT Dictated by: Dre Membreno M.D. on 11/23/2018 at 13:24 Approved by: Dre Membreno M.D. on 11/23/2018 at 13:29 Chest x-ray: Radiologist's impression: Flori Powell 63 F 1955 [place] [address] XRay Report Signed Patient: Flori Powell LMR#: [id number] : 1955cct:[id number] Age/Sex: 63 / FDate of Service: 11/23/18 Loc: ED Accession Number: [id number] Procedure: XR chest 1V Ordering Provider: Virginia Macias D.O. PROCEDURE: XR CHEST 1V INDICATIONS: chest pain TECHNIQUE: One view of the chest was acquired. COMPARISON: [facility], , CHEST 2 VIEW, 05/18/2011, 9:49. FINDINGS: Surgical changes and devices: None. Lungs and pleura: Lungs are clear. No pleural effusions or pneumothorax. Mediastinum: Mediastinal contours appear normal. Heart size is normal. Bones and chest wall: No suspicious bony lesions. Overlying soft tissues appear unremarkable. IMPRESSION: Normal for age, source of current chest pain symptoms is not seen. Dictated by: David Welsh M.D. on 11/23/2018 at 11:49 Approved by: David Welsh M.D. on 11/23/2018 at 11:49 ECG Data Attestation: I personally reviewed and interpreted this ECG as follows: Interpretation: Sinus rhythm. Ventricular rate 69. No ectopy noted. No ST elevation or depression noted. viewed by Dr Macias 11:21 MDM Narrative Medical decision making narrative: The patient is a 63-year-old female who presents with a chief complaint of hypertension earlier today. She has 2 negative troponins, normal head CT normal chest x-ray grossly normal lab work. During her stay in the emergency department, her blood pressure ranged from 130- 150 systolic. Upon discharge she felt much improved and expressed desire to go home. I discussed at length that she is to follow up with her primary care provider. Given that her systolic towards the end of her emergency department stay was 130, I did not feel the need to change her blood pressure regimen as well. I did discuss that she needs to follow up with primary care provider. Di scussed at length rest at home over the next few days, as well as come back to the emergency department for any acute concerns such as chest pain, shortness of breath concern of heart attack or stroke. <Virginia Macias, DO - Last Filed: 11/23/18 19:31> Lab Data Lab results reviewed: Yes I reviewed the patient's lab results. Lab Results 11/23/18 11/23/18 11/23/18 Range/Units 11:40 11:40 11:40 WBC 8.9 (4.5-11.0) X10^3/uL RBC 5.30 H (4.0-5.2) X10^6/uL Hgb 15.4 (12.0-16.0) g/dL Hct 45.3 (36-46) % MCV 85.5 (80-100) fL MCH 29.1 (26-34) PG MCHC 34.0 (30-36) % RDW 13.7 (11.6-14.8) % Plt Count 193 (150-400) X10^3/uL Neut % (Auto) 73.3 (50-75) % Lymph % (Auto) 16.5 L (25-40) % Haskell % (Auto) 6.9 (3-14) % Eos % (Auto) 2.2 (2-4) % Baso % (Auto) 1.1 (0-2) % Neut # (Auto) 6500 (9163-4391) /uL Lymph # (Auto) 1500 (2167-9664) /uL Haskell # (Auto) 600 (0-900) /uL Eos # (Auto) 200 (0-450) /uL Baso # (Auto) 100 (0-100) /uL PT 12.7 (10.1-12.7) SECONDS INR 1.1 (0.9-1.3) APTT 34 (26.4-36.2) SECONDS Sodium 140 (137-145) mmol/L Potassium 4.1 (3.4-5.1) mmol/L Chloride 102 (98-107) mmol/L Carbon Dioxide 28 (22-32) mmol/L BUN 15 (7-17) mg/dL Creatinine 0.70 (0.52-1.04) mg/dL Estimated GFR > 60.0 (>60) mL/min BUN/Creatinine Ratio 21.4 (6-22) Glucose 120 H (80-110) mg/dL Calcium 9.4 (8.4-10.2) mg/dL Total Bilirubin 0.5 (0.2-1.3) mg/dL AST 30 (14-36) IU/L ALT 45 (9-52) IU/L Alkaline Phosphatase 85 (38-126) U/L Total Creatine Kinase 157 H (30-135) U/L CK-MB (CK-2) 1.94 (<2.37) ng/mL CK-MB (CK-2) Rel Index 1.2 L (1.5-5.0) % Troponin I < 0.012 (0.01-0.034) ng/mL Total Protein 7.3 (6.3-8.2) g/dL Albumin 4.3 (3.5-5.0) g/dL Globulin 3.0 (1.7-4.1) g/dL Albumin/Globulin Ratio 1.4 (1.0-2.8) Lipase 82 (23-300) U/L 11/23/18 Range/Units 14:50 WBC (4.5-11.0) X10^3/uL RBC (4.0-5.2) X10^6/uL Hgb (12.0-16.0) g/dL Hct (36-46) % MCV (80-100) fL MCH (26-34) PG MCHC (30-36) % RDW (11.6-14.8) % Plt Count (150-400) X10^3/uL Neut % (Auto) (50-75) % Lymph % (Auto) (25-40) % Haskell % (Auto) (3-14) % Eos % (Auto) (2-4) % Baso % (Auto) (0-2) % Neut # (Auto) (4677-9748) /uL Lymph # (Auto) (1480-9454) /uL Haskell # (Auto) (0-900) /uL Eos # (Auto) (0-450) /uL Baso # (Auto) (0-100) /uL PT (10.1-12.7) SECONDS INR (0.9-1.3) APTT (26.4-36.2) SECONDS Sodium (137-145) mmol/L Potassium (3.4-5.1) mmol/L Chloride (98-107) mmol/L Carbon Dioxide (22-32) mmol/L BUN (7-17) mg/dL Creatinine (0.52-1.04) mg/dL Estimated GFR (>60) mL/min BUN/Creatinine Ratio (6-22) Glucose (80-110) mg/dL Calcium (8.4-10.2) mg/dL Total Bilirubin (0.2-1.3) mg/dL AST (14-36) IU/L ALT (9-52) IU/L Alkaline Phosphatase (38-126) U/L Total Creatine Kinase 191 H (30-135) U/L CK-MB (CK-2) 1.75 (<2.37) ng/mL CK-MB (CK-2) Rel Index 0.9 L (1.5-5.0) % Troponin I < 0.012 (0.01-0.034) ng/mL Total Protein (6.3-8.2) g/dL Albumin (3.5-5.0) g/dL Globulin (1.7-4.1) g/dL Albumin/Globulin Ratio (1.0-2.8) Lipase (23-300) U/L Urine Dip Bedside Urine Glucose Negative Bedside Urine Bilirubin - Negative Bedside Urine Ketone - Negative Urine Specific [place] 1.015 Bedside Urine Occult Blood - Negative Bedside Urine pH 6.5 Bedside Urine Protein +/- 15 Bedside Urine Urobilinogen - Negative Bedside Urine Nitrite - Negative Bedside Urine Leukocytes - Negative Esterase Point of care testing: Urine Dip Bedside Urine Glucose Negative Bedside Urine Bilirubin - Negative Bedside Urine Ketone - Negative Urine Specific [place] 1.015 Bedside Urine Occult Blood - Negative Bedside Urine pH 6.5 Bedside Urine Protein +/- 15 Bedside Urine Urobilinogen - Negative Bedside Urine Nitrite - Negative Bedside Urine Leukocytes - Negative Esterase ECG Data Attestation: I personally reviewed and interpreted this ECG as follows: Interpretation: Sinus rhythm, rate of 69 AR 176 QRS of 90 QTC of 413. No obvious ST changes. No priors. Discharge Plan Departure Patient Disposition: Home Clinical Impression: Hypertension Qualifiers: Hypertension type: unspecified Qualified Code(s): I10 - Essential (primary) hypertension Discharge Date/Time: 11/23/18 16:13 Interventions: ED Discharge Assessment Last Done: 11/23/18 16:11 Instructions: DI for High Blood Pressure Activity Restrictions/Additional Instructions: Thank you for trusting us with your care today. Please follow up with primary care provider soon as possible. Today you had a normal chest x-ray, normal head CT, normal lab work including electrolytes, kidney function and 2 sets of negative cardiac enzymes. Your blood pressure has been good throughout your stay in the emergency department. It is so good that I do not want to change her medications in the emergency department at this point time. Please come back to emergency department for any acute concerns such as chest pain, shortness of breath concern of heart attack or stroke Prescriptions: No Action aspirin 81 MG tablet,delayed release (DR/EC) 81 - 162 mg PO QPM Qty: 0 RF: 0 Fish Oil 1 cap PO DAILY Qty: 0 RF: 0 Zostavax (PF) 19,400 UNIT/0.65 ML suspension for reconstitution 0.5 ml SQ SEE INSTRUCTIONS Qty: 1 RF: 0 albuterol sulfate [Ventolin HFA] 90 MCG/PUFF HFA aerosol inhaler 2 puff INH Q4HWA Qty: 1 RF: 4 alprazolam 0.5 mg tablet 0.5 mg PO SEE INSTRUCTIONS PRN (Reason: anxiety) Qty: 10 RF: 0 fluticasone propionate 50 mcg/actuation spray,suspension 1 spray Intranasal BID Qty: 16 RF: 11 cholecalciferol (vitamin D3) 2,000 unit capsule 2,000 unit PO DAILY RF: 0 atorvastatin [Lipitor] 20 mg tablet 20 mg PO DAILY RF: 0 atenolol 100 mg tablet 100 mg PO DAILY RF: 0 triamterene-hydrochlorothiazid 37.5-25 mg tablet 1 tab PO DAILY RF: 0 losartan 100 mg tablet 100 mg PO DAILY RF: 0 epinephrine 0.3 MG/0.3 ML auto-injector 0.3 mg IM PRN PRN (Reason: bee sting) RF: 0 Referrals: Lorena Owens MD [Primary Care Provider] -
[2018-11-23 14:59] VITALS: BP 155/69; PULSE 71; RESP 14; O2SAT 98
[2018-11-23 15:07] LABS: Creatine Kinase 191 U/L (30-135)
[2018-11-23 15:20] LABS: Troponin I < 0.012 ng/mL (0.01-0.034)
[2018-11-23 15:22] LABS: CKMB % Relative Index 0.9 % (1.5-5.0); Creatine Kinase MB 1.75 ng/mL (<2.37)
[2018-11-23 15:50] VITALS: BP 148/72; PULSE 70; RESP 18; O2SAT 98
== END 2018-11-23 16:13 | disposition home or self-care (01) ==
PROVIDERS: Emergency Medicine; Emergency Provider Nurse Practitioner Family; PCP Family Medicine
DX: I10 Essential (primary) hypertension (principal); R51 Headache; R42 Dizziness and giddiness
CPT/HCPCS: 36415; 36591; 70450; 71045; 80053; 81003; 82550; 82553; 83690; 84484; 85025; 85610; 85730; 93005; 99283; 99285

== ENCOUNTER → 2018-11-30 06:43 | Outpatient (CLI) | payer OTHER, SELFPAY ==
--- NOTE | 2018-11-30 06:47 | DI.ECHO.S_ITS ---
[facility] +---------+ : : [address] : : : : [id number] : : : : Phone: [phone] Echocardiogram Report + + :Name: MUSA BRAND Study Date: 11/30/2018 Height: 62 in : :[facility] Exam Location: [facility] Weight: 228 lb : : Gender: Female BSA: 2.0 m2 : :: 1955 Age: 63 yrs BP: 166/78 mmHg: :Reason For Study: HTN : : Performed By: Chandrakant Quiñonez : :Referring: SUKHDEV HILL : + + Interpretation Summary Normal sinus rhythm. Normal LV size and wall thickness. Normal wall motion and LV systolic function. EF is 60-65%. Normal chamber sizes. No significant valvular abnormalities. No prior study available for comparison. Procedure: A two-dimensional transthoracic echocardiogram with color flow and Doppler was performed. The study quality was technically adequate. There is no prior echocardiogram noted for this patient. The patient was in normal sinus rhythm during the exam. Left Ventricle: The left ventricle is normal in size. There is normal left ventricular wall thickness. The ejection fraction is estimated to be 60-65%. There are no focal wall motion abnormalities. Right Ventricle: The right ventricle is normal in size and function. Atria: Both atria are normal in size. The interatrial septum is intact with no evidence for an atrial septal defect. Mitral Valve: The mitral valve is normal in structure and function. There is trace mitral regurgitation. Aortic Valve: The aortic valve is normal in structure and function. The aortic valve is trileaflet. The aortic valve opens well. No aortic regurgitation is present. Tricuspid Valve: The tricuspid valve is normal in structure and function. No tricuspid regurgitation. Pulmonary artery pressures cannot be estimated because of the lack of a measurable TR jet velocity. Pulmonic Valve: The pulmonic valve is normal in structure and function. There is trace pulmonic regurgitation. Great Vessels: The aortic root is normal size. The dimensions of the ascending aorta are normal. The pulmonary artery is normal size. The IVC is of normal diameter and collapses greater than 50% with a sniff. This suggests a low right atrial pressure of 3 mm Hg. Pericardium/ Pleura There is no pericardial effusion. There is no pleural effusion. MMode/2D Measurements & Calculations LVIDd: 5.0 cm LVOT diam: 2.0 cm LVIDs: 3.3 cm Ao root diam: 3.0 cm FS: 33.9 % Aortic Jxn: 2.4 cm EPSS: 0.45 cm asc Aorta Diam: 3.4 cm IVSd: 0.98 cm LVPWd: 0.88 cm LV snow. diameter/BSA (cm/m^2): 2.5 LV sys. diameter/BSA (cm/m^2): 1.6 LA dimension: 4.2 cm RA long axis: 5.4 cm LA A2 area: 20.2 cm2 RA area: 16.0 cm2 LA A4 area: 24.3 cm2 RA vol: 40.4 ml LA length (vol): 7.0 cm RA : 20.0 ml/m2 LA vol: 60.1 ml IVC diam: 1.6 cm LA vol index: 29.7 ml/m2 Doppler Measurements & Calculations Ao V2 max: 159.0 cm/sec LVOT Max Edgar: 132.1 cm/sec Ao V2 mean: 110.2 cm/sec LV V1 max P.0 mmHg Ao max P.1 mmHg LV V1 VTI: 26.0 cm Ao mean P.4 mmHg KENYA(I,D): 2.6 cm2 Ao V2 VTI: 30.6 cm KENYA(V,D): 2.6 cm2 sev ratio: 0.85 KENYA indexed to BSA (cm^2/m^2): 1.3 MV E max edgar: 72.0 cm/sec PA V2 max: 91.9 cm/sec MV A max edgar: 109.2 cm/sec PA V2 mean: 71.0 cm/sec MV E/A: 0.66 PA mean P.1 mmHg Med Peak E' Edgar: 5.6 cm/sec PA pr(Accel): 36.6 mmHg E/E' med: 12.9 PA Accel Time: 0.08 sec Lat Peak E' Edgar: 8.5 cm/sec E/E' lat: 8.5 E/e' average: 10.7 MV dec time: 0.25 sec SV(LVOT): 80.2 ml Electronically signed by: Sandra Paniagua M.D. on Reading Physician:12/01/2018 03:44 AM
== END ==
PROVIDERS: PCP Family Medicine; Visit Provider Family Medicine
DX: I10 Essential (primary) hypertension (principal)
CPT/HCPCS: 93306

== ENCOUNTER → 2019-01-02 11:48 | Outpatient (CLI) | payer OTHER, SELFPAY ==
[2019-01-02 12:16] LABS: Add Manual Diff / Slide Review NO; Basophils Absolute Auto 0 /uL (0-100); Basophils Percent Auto 0.5 % (0-2); Eosinophils Absolute Auto 300 /uL (0-450); Eosinophils Percent Auto 3.2 % (2-4); Hematocrit 40.4 % (36-46); Hemoglobin 13.8 g/dL (12.0-16.0); Lymphocytes Absolute Auto 1900 /uL (1100-4500); Lymphocytes Percent Auto 20.6 % (25-40); Mean Corpuscular HGB Conc 34.3 % (30-36); Mean Corpuscular Volume 84.7 fL (80-100); Monocytes Absolute Auto 800 /uL (0-900); Monocytes Percent Auto 8.8 % (3-14); Neutrophils Absolute Auto 6300 /uL (1500-7000); Neutrophils Percent Auto 66.9 % (50-75); Platelet Count 182 X10^3/uL (150-400); Red Blood Cell Count 4.77 X10^6/uL (4.0-5.2); Red Cell Distribution Width 13.7 % (11.6-14.8); White Blood Cell Count 9.4 X10^3/uL (4.5-11.0)
[2019-01-02 12:28] LABS: Lactate (Lactic Acid) 0.8 mmol/L (0.7-2.1)
[2019-01-02 12:35] LABS: Alanine Aminotransferase 37 IU/L (9-52); Albumin 4.3 g/dL (3.5-5.0); Albumin Globulin Ratio 1.8 (1.0-2.8); Alkaline Phosphatase 73 U/L (38-126); Aspartate Aminotransferase 28 IU/L (14-36); BUN Creatinine Ratio 23.6 (6-22); Bilirubin Total 0.6 mg/dL (0.2-1.3); Blood Urea Nitrogen 33 mg/dL (7-17); Carbon Dioxide 30 mmol/L (22-32); Chloride 101 mmol/L (98-107); Estimated Glomerular Filt Rate 38.2 mL/min (>60); Globulin 2.4 g/dL (1.7-4.1); Glucose 104 mg/dL (80-110); HEMOLYSIS < 15 (0-50); Potassium 4.2 mmol/L (3.4-5.1); Sodium 141 mmol/L (137-145); Total Protein 6.7 g/dL (6.3-8.2)
[2019-01-02 12:37] LABS: Erythrocyte Sedimentation Rate 29 MM/HR (0-20)
== END ==
PROVIDERS: PCP Family Medicine; Visit Provider Physician Assistant
DX: R50.9 Fever, unspecified (principal)
CPT/HCPCS: 36415; 80053; 83605; 85025; 85651

== ENCOUNTER → 2019-01-10 08:33 | Outpatient (CLI) | payer OTHER, SELFPAY ==
[2019-01-10 09:17] LABS: BUN Creatinine Ratio 25.6 (6-22); Blood Urea Nitrogen 23 mg/dL (7-17); Calcium 9.1 mg/dL (8.4-10.2); Carbon Dioxide 33 mmol/L (22-32); Chloride 101 mmol/L (98-107); Cholesterol 146 mg/dL (140-199); Estimated Glomerular Filt Rate > 60.0 mL/min (>60); Glucose 134 mg/dL (80-110); HDL Cholesterol 39 mg/dL (40-60); HEMOLYSIS < 15 (0-50); LDL Cholesterol Calculated 77 mg/dL (<100); Potassium 3.2 mmol/L (3.4-5.1); Sodium 141 mmol/L (137-145); Triglycerides 149 mg/dL (35-150)
== END ==
PROVIDERS: PCP Family Medicine; Visit Provider Hospitalist
DX: E78.5 Hyperlipidemia, unspecified (principal); I10 Essential (primary) hypertension
CPT/HCPCS: 36415; 80048; 80061

== ENCOUNTER → 2019-02-09 09:49 | Outpatient (CLI) | payer OTHER, SELFPAY ==
[2019-02-09 11:21] LABS: BUN Creatinine Ratio 23.8 (6-22); Blood Urea Nitrogen 19 mg/dL (7-17); Calcium 9.9 mg/dL (8.4-10.2); Carbon Dioxide 30 mmol/L (22-32); Chloride 101 mmol/L (98-107); Estimated Glomerular Filt Rate > 60.0 mL/min (>60); Glucose 128 mg/dL (80-110); HEMOLYSIS < 15 (0-50); Potassium 4.5 mmol/L (3.4-5.1); Sodium 141 mmol/L (137-145)
== END ==
PROVIDERS: PCP Family Medicine; Visit Provider Hospitalist
DX: I10 Essential (primary) hypertension (principal)
CPT/HCPCS: 36415; 80048

== ENCOUNTER → 2019-02-23 07:39 | Outpatient (CLI) | payer OTHER, SELFPAY ==
[2019-02-23 09:18] LABS: BUN Creatinine Ratio 28.8 (6-22); Blood Urea Nitrogen 23 mg/dL (7-17); Calcium 9.8 mg/dL (8.4-10.2); Carbon Dioxide 29 mmol/L (22-32); Chloride 101 mmol/L (98-107); Estimated Glomerular Filt Rate > 60.0 mL/min (>60); Glucose 107 mg/dL (80-110); HEMOLYSIS < 15 (0-50); Potassium 4.2 mmol/L (3.4-5.1); Sodium 140 mmol/L (137-145)
== END ==
PROVIDERS: PCP Family Medicine; Visit Provider Hospitalist
DX: I10 Essential (primary) hypertension (principal)
CPT/HCPCS: 36415; 80048

== ENCOUNTER → 2019-03-22 08:15 | Outpatient (CLI) | payer OTHER, SELFPAY ==
[2019-03-22 09:37] LABS: BUN Creatinine Ratio 26.3 (6-22); Blood Urea Nitrogen 21 mg/dL (7-17); Calcium 9.6 mg/dL (8.4-10.2); Carbon Dioxide 31 mmol/L (22-32); Chloride 99 mmol/L (98-107); Estimated Glomerular Filt Rate > 60.0 mL/min (>60); Glucose 139 mg/dL (80-110); HEMOLYSIS < 15 (0-50); Potassium 4.2 mmol/L (3.4-5.1); Sodium 140 mmol/L (137-145)
== END ==
PROVIDERS: PCP Family Medicine; Visit Provider Hospitalist
DX: I10 Essential (primary) hypertension (principal)
CPT/HCPCS: 36415; 80048

== ENCOUNTER → 2019-05-04 13:02 | Outpatient (CLI) | payer OTHER, SELFPAY ==
[2019-05-04 14:34] LABS: BUN Creatinine Ratio 23.8 (6-22); Blood Urea Nitrogen 19 mg/dL (7-17); Calcium 9.2 mg/dL (8.4-10.2); Carbon Dioxide 29 mmol/L (22-32); Chloride 99 mmol/L (98-107); Estimated Glomerular Filt Rate > 60.0 mL/min (>60); Glucose 94 mg/dL (80-110); HEMOLYSIS < 15 (0-50); Potassium 4.3 mmol/L (3.4-5.1); Sodium 139 mmol/L (137-145)
== END ==
PROVIDERS: PCP Family Medicine; Visit Provider Family Medicine
DX: I10 Essential (primary) hypertension (principal)
CPT/HCPCS: 36415; 80048

== ENCOUNTER → 2019-08-08 15:53 | Outpatient (CLI) | payer OTHER, SELFPAY ==
[2019-08-08 17:41] LABS: Hemoglobin A1C% w Est Avg Glu 6.3 % (4.0-6.0)
[2019-08-08 17:59] LABS: BUN Creatinine Ratio 28.8 (6-22); Blood Urea Nitrogen 23 mg/dL (7-17); Carbon Dioxide 31 mmol/L (22-32); Chloride 101 mmol/L (98-107); Estimated Glomerular Filt Rate > 60.0 mL/min (>60); Glucose 102 mg/dL (80-110); HEMOLYSIS < 15 (0-50); Potassium 4.9 mmol/L (3.4-5.1); Sodium 142 mmol/L (137-145)
[2019-08-08 18:21] LABS: Creatinine Urine Random 59.3 mg/dL
[2019-08-08 18:32] LABS: Microalbumi Creatinin Ratio Ur 10.1 ug/mg CR (<30); Microalbumin Urine Random < 0.6 mg/dL (0-1.6)
== END ==
PROVIDERS: PCP Family Medicine; Referring Provider Family Medicine; Visit Provider Family Medicine
DX: I10 Essential (primary) hypertension (principal); R73.03 Prediabetes
CPT/HCPCS: 36415; 80048; 82043; 82570; 83036

== ENCOUNTER → 2019-11-23 08:51 | Outpatient (CLI) | payer OTHER, SELFPAY ==
[2019-11-23 10:28] LABS: Hemoglobin A1C% w Est Avg Glu 6.5 % (4.0-6.0)
[2019-11-23 10:56] LABS: Cholesterol 161 mg/dL (140-199); HDL Cholesterol 41 mg/dL (40-60); LDL Cholesterol Calculated 86 mg/dL (<100); Triglycerides 168 mg/dL (35-150)
== END ==
PROVIDERS: PCP Family Medicine; Referring Provider Family Medicine; Visit Provider Family Medicine
DX: E78.5 Hyperlipidemia, unspecified (principal); I10 Essential (primary) hypertension; R73.03 Prediabetes
CPT/HCPCS: 36415; 80061; 83036

== ENCOUNTER → 2019-12-27 10:49 | Outpatient (CLI) | payer OTHER, SELFPAY ==
--- NOTE | 2019-12-27 13:33 | DIET.PN ---
Diabetes Intake: Initial Assessment Assess: Ms Powell is a 64 YOF newly diagnosed with type 2 diabetes. She reports strong family hx. She has tried several different diets in the past and was placed on phentermine for weight loss. She states she has been able to lose weight with these diets, but always seems to put the weight back on plus additional weight. She currently walks about 2 mi per day, but knows she needs to add more variety to her exercise. She was placed on prednisone for 1 week prior to most recent labs. Labs: Per pt report: A1c: 6.5 (11/14) 6.3 (08/17) Microalb: <0.6 MIcroabl/Cr: 10.1 Meds: atorvastatin Diet: per 24 hr recall: very inconsistent aside from breakfast Wt: 238# Ht: 62? BMI: 43.5 DX: Altered nutrition related laboratory values related to impaired glucose metabolism, lack of previous exposure to nutrition information as evidenced by pt report, diagnosis of diabetes, previous diet high in refined carbohydrates. Intervention: 1. Completed intake assessment. Discussed barriers to care. 2. Discussed pathophysiology of diabetes. Reviewed A1c and its correlation to blood glucose numbers. Discussed recommended BG ranges. 3. Discussed importance of self-monitoring, how often, and when to check. Provided demonstration on use of glucometer. 4. Reviewed hyper/hypoglycemia and treatment. 5. Reviewed safe disposal of equipment (strip/lancets/insulin needles). 6. Created SMART goals for pt self-care and success. 7. Discussed program curriculum outline and class needs based on individual goals. SMART Goals: 1. Pt would like to lose 40# in the next 6 mo by eating healthier. 2. Pt would like to increase exercise by incorporating strength/resistance training on alternate walking days for increase strength and cardiovascular health. Monitor/Evaluate: Anticipate excellent compliance. Pt will attend full DSME program.
== END ==
PROVIDERS: PCP Family Medicine; Referring Provider Family Medicine; Visit Provider Family Medicine
DX: E11.9 Type 2 diabetes mellitus without complications (principal); E66.9 Obesity, unspecified; Z68.41 Body mass index [BMI] 40.0-44.9, adult; Z71.3 Dietary counseling and surveillance
CPT/HCPCS: G0108

== ENCOUNTER → 2020-01-02 11:08 | Outpatient (CLI) | payer OTHER, SELFPAY ==
[2020-01-02 12:35] LABS: BUN Creatinine Ratio 23.4 (6-22); Blood Urea Nitrogen 18 mg/dL (7-17); Calcium 9.9 mg/dL (8.4-10.2); Carbon Dioxide 32 mmol/L (22-32); Chloride 99 mmol/L (98-107); Estimated Glomerular Filt Rate > 60.0 mL/min (>60); Glucose 85 mg/dL (80-110); HEMOLYSIS < 15 (0-50); Sodium 138 mmol/L (137-145)
== END ==
PROVIDERS: PCP Family Medicine; Referring Provider Family Medicine; Visit Provider Family Medicine
DX: I10 Essential (primary) hypertension (principal)
CPT/HCPCS: 36415; 80048

== ENCOUNTER → 2020-01-04 09:53 | Outpatient (CLI) | payer OTHER, SELFPAY ==
--- NOTE | 2020-01-04 11:42 | DIET.PN ---
Exercise/Lifestyle change: 1. Importance of exercise 2. FITT (frequency, intensity, time, type) 3. Strength training tips and guidelines 4. Glucose monitoring/ranges before and after a. Carbohydrate needs based on glucose ranges and duration/intensity of exercise b. Rule of 15 5. Proper foot attire 6. Developing strategies for behavior change 7. SMART Goal Setting 8. Home exercise routine demonstration (as a class)
== END ==
PROVIDERS: PCP Family Medicine; Referring Provider Family Medicine; Visit Provider Family Medicine
DX: E11.9 Type 2 diabetes mellitus without complications (principal); Z71.3 Dietary counseling and surveillance
CPT/HCPCS: G0109

== ENCOUNTER → 2020-01-09 14:25 | Outpatient (CLI) | payer OTHER, SELFPAY ==
--- NOTE | 2020-01-09 16:30 | DIET.PN ---
Diabetes: Healthy Eating 1 Intervention: ? Discussed pathophysiology of diabetes and impact of nutrition/diet on blood sugar control.? Discussed fed versus non-fed state.?? ? Reviewed importance of Balance, Variety, and Moderation. ? Discussed the effect of carbohydrates/protein/fat on blood sugar control.? ? Stressed importance of consistent carbohydrate intake at each meal and provided instructions for recommended servings/portions of carbohydrates/protein per meal. Provided educational material. ? Reviewed carbohydrate counting and measuring carbohydrate content via serving sizes and reading nutrition labels.? Provided handouts.?? ? Discussed the difference between simple versus complex carbohydrates and the effect of fiber on blood sugar control.? Discussed various methods to increase fiber content in diet. ? Discussed the plate method for creating more carbohydrate conscious balanced meals. ? Stressed importance of meal timing and not going >4-5 hours between meals. Encouraged adding protein to evening snack to support glucose control overnight. ? Discussed importance of making dietary habits part of lifestyle change.
== END ==
PROVIDERS: PCP Family Medicine; Referring Provider Family Medicine; Visit Provider Family Medicine
DX: E11.9 Type 2 diabetes mellitus without complications (principal); Z71.3 Dietary counseling and surveillance
CPT/HCPCS: G0109

== ENCOUNTER → 2020-01-18 14:24 | Outpatient (CLI) | payer OTHER, SELFPAY ==
--- NOTE | 2020-01-18 16:24 | DIET.PN ---
Diabetes: Healthy Eating 2 Intervention: Fats effects on glucose, weight, heart disease, cholesterol Sat Vs Unsat Protein- animal and plant based options Low, med, high fat meats Sugar substitutes Sodium Health claims Grocery shopping guidelines Eating away from home Alcohol Sick day guidelines Ketone Testing
== END ==
PROVIDERS: PCP Family Medicine; Referring Provider Family Medicine; Visit Provider Family Medicine
DX: E11.9 Type 2 diabetes mellitus without complications (principal); Z71.3 Dietary counseling and surveillance
CPT/HCPCS: G0109

== ENCOUNTER → 2020-02-14 10:53 | Outpatient (CLI) | payer OTHER, SELFPAY ==
[2020-02-14 11:03] VITALS: BMI 43.1
--- NOTE | 2020-02-14 12:42 | DIET.PN ---
DIABETES Nutrition Initial Assessment:? ASSESS:?? Ms. Powell is a 64 yof??referred for type 2 diabetes seen as part of DSME program. She reports significant changes to her eating habits including cutting down on portion sizes and snacking. She is reading and comparing food labels before purchasing products. She has not been walking as often as she used to bc of recent high foot traffic near her home, but she has been doing more yard work while she has been off work. ??? LABS: Per pt report:? A1c: 6.5 B-150 ? MEDS:?? statin ? DIET: Per 24-hour recall:? B: Telugu muffin w/ fried egg; yogurt w/ berries L: leftovers; cucumber salad; half sandwich; chicken D: chicken wrapped in prosciutto w/ veggies Eating Out: rarely Changes in Appetite: getting used to eating less Nutrition Supplements: vit D, cinnamon, ACV ? Weight: 234 Height: 62? BMI: ? 42.8 ? Exercise:? yard work, short walks w/ dog several times/day NUTRITION DX 1. Altered Nutrition related labs related to impaired glucose metabolism, lack of previous exposure to accurate nutrition information as evidenced by pt report, dx of diabetes, previous diet high in refined carbohydrates.? INTERVENTION(s): 1. Reviewed pathophysiology of diabetes and impact of nutrition/diet on blood sugar control.? Discussed fed versus non-fed state.?? 2. Discussed the effect of carbohydrates/protein/fat on blood sugar control.? Stressed importance of consistent carbohydrate intake at each meal and provided instructions for recommended servings/portions of carbohydrates/protein per meal. Provided pt with educational material. 3. Reviewed carbohydrate counting and measuring carbohydrate content via serving sizes and reading nutrition labels.? 4. Discussed the difference between simple versus complex carbohydrates and the effect of fiber on blood sugar control.? Discussed various methods to increase fiber content in diet. 5. Stressed importance of meal timing and not going >4-5 hours between meals. Encouraged adding protein to evening snack to support glucose control overnight. Patient agreeable. 6. Discussed healthy weight loss goals of 1-2lbs per week through diet and exercise.? Pt agreeable to walking or resistance training at least 30 minutes daily. 7. Recommend monitoring fasting and 2 hr PP evening mealtime glucose. MONITOR/EVALUATE: Anticipate good compliance.? Nutrition follow-up scheduled for 1 month.
== END ==
PROVIDERS: PCP Family Medicine; Referring Provider Family Medicine; Visit Provider Family Medicine
DX: E11.9 Type 2 diabetes mellitus without complications (principal)
CPT/HCPCS: G0109

== ENCOUNTER → 2020-02-20 10:02 | Outpatient (CLI) | payer OTHER, SELFPAY ==
--- NOTE | 2020-02-20 12:15 | DIET.PN ---
Diabetes Physiology: Intervention 1. Diabetes physiology 2. Detecting and treatment of acute and chronic complications 3. Diagnosis of and difference in types of diabetes 4. Self-monitoring and pattern management a. Demonstrate glucometer and control testing b. Explain BG results and action to take when out of range. 5. Foot , eye, dental care 6. Medications a. Oral medication classification b. Injectable c. Insulin i. Injection protocol ii. Other delivery methods
== END ==
PROVIDERS: PCP Family Medicine; Referring Provider Family Medicine; Visit Provider Family Medicine
DX: E11.9 Type 2 diabetes mellitus without complications (principal)
CPT/HCPCS: G0109

== ENCOUNTER → 2020-03-26 16:09 | Outpatient (CLI) | payer OTHER, SELFPAY ==
[2020-03-26 17:17] LABS: BUN Creatinine Ratio 25.7 (6-22); Blood Urea Nitrogen 18 mg/dL (7-17); Calcium 9.8 mg/dL (8.4-10.2); Carbon Dioxide 37 mmol/L (22-32); Chloride 97 mmol/L (98-107); Estimated Glomerular Filt Rate > 60.0 mL/min (>60); Glucose 118 mg/dL (80-110); HEMOLYSIS < 15 (0-50); Potassium 3.8 mmol/L (3.4-5.1); Sodium 137 mmol/L (137-145)
[2020-03-26 17:31] LABS: Hemoglobin A1C% w Est Avg Glu 6.5 % (4.0-6.0)
== END ==
PROVIDERS: PCP Family Medicine; Referring Provider Family Medicine; Visit Provider Family Medicine
DX: R73.03 Prediabetes (principal)
CPT/HCPCS: 36415; 80048; 83036

== ENCOUNTER → 2020-03-27 15:09 | Outpatient (CLI) | payer OTHER, SELFPAY ==
--- NOTE | 2020-03-27 16:37 | DIET.PN ---
Diabetes Follow Up Assess: Met for Ms. Powell?s 3 mo follow up visit. She is working on weight management by normal size portions into 3 smaller meals. 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 Her blood sugars have been in a normal diabetes ranges, but she is looking to lower through increased exercise. Labs: A1c: 6.5 FB-140 2 hr PP: <150 Meds: na Dietary changes: B: pb on toast or berries w/ fried egg L: ? sandwich w/ vegetables D: roasted chicken w/ cottage cheese, cucumber salad Ht: 62? Wt: BMI: Exercise: 15-20 min bike Nutrition DX: Altered nutrition related laboratory values related to impaired glucose metabolism, lack of previous exposure to nutrition information as evidenced by pt report, diagnosis of diabetes, previous diet high in refined carbohydrates. Intervention: 1. Completed follow up assessment. Reviewed barriers to care. 2. Reviewed new labs and importance of continued BG monitoring. 3. Reviewed SMART goals and made modifications where appropriate including wt management, activity, and A1c goals. 4. Discussed plan for ongoing support. Provided information for continued support and success. SMART goals: 1. Lower A1c by increasing physical activity including strength training 2x/wk and drinking more water. Monitor/Evaluate: Pt will follow up in 3 mo to discuss new labs and barriers to care.
== END ==
PROVIDERS: PCP Family Medicine; Referring Provider Family Medicine; Visit Provider Family Medicine
DX: E11.9 Type 2 diabetes mellitus without complications (principal); Z71.3 Dietary counseling and surveillance
CPT/HCPCS: G0109

== ENCOUNTER → 2020-05-31 10:26 | Outpatient (CLI) | payer OTHER, SELFPAY ==
[2020-05-31 10:58] LABS: COVID19 -Nasal RAPID Negative (Negative)
== END ==
PROVIDERS: PCP Family Medicine; Visit Provider Surgery
DX: Z01.812 Encounter for preprocedural laboratory examination (principal); Z20.828 Contact with and (suspected) exposure to other viral communicable diseases
CPT/HCPCS: 87635; C9803

== ENCOUNTER 2020-06-03 07:59 | Day surgery (SDC) | payer OTHER, SELFPAY ==
[2020-06-03] VITALS (7 sets, daily range): BP systolic 107–141; BP diastolic 51–82; PULSE 64–75; RESP 14–18; TEMP 36.2–37; O2SAT 93–98; BMI 43.0
--- NOTE | 2020-06-03 | PATH_ITS ---
[facility] Accession Number: [id number] . 01 Material submitted: . PART A: colon - ASCENDING COLON X2 PART B: colon - SIGMOID COLON . 02 Diagnosis: A. Ascending Colon, Biopsies: Fragments of tubular adenoma (two polyps removed). . B. Sigmoid Colon, Biopsy: Colonic mucosa with focal mucosal hyperplasia. Negative for active or microscopic colitis. Negative for granulomata, dysplasia or malignancy. [facility] 06/05/2020 1204 Local . 02 Electronically signed: . Isiah Reyna MD, PhD, Pathologist NPI- [id number] . 01 Gross description: . Part A: ASCENDING COLON X2: Received in formalin are 4 fragment(s) of ochoa, soft tissue measuring 0.5 x 0.3 x 0.2 cm to 0.2 x 0.1 x 0.1 cm submitted entirely in 1 cassette(s) Part B: SIGMOID COLON: Received in formalin is 1 fragment(s) of ochoa, soft tissue measuring 0.3 x 0.3 x 0.3 cm submitted entirely in 1 cassette(s) /QBJ 06/04/2020 0816 Local . 02 Pathologist provided ICD-10: Z12.11, D12.2 . 02 CPT . 434977, [id number] Performed at: 01 [facility] [address], [place], [place] [id number] MD Elian Paul MD Phone: [phone] Performed at: 02 [facility] [address] [place], [place] [id number] MD Laura Greenfield MD Phone: [phone]
[2020-06-03] MEDS: LACTATED RINGERS 1,000 ML 200 ML IV (08:47)
--- NOTE | 2020-06-03 09:13 | PM.HP.1 ---
History of Present Illness History of Present Illness Date Patient Seen: 06/03/20 Time Patient Seen: 09:14 Chief complaint: SDC Narrative: The patient presents for colorectal sreening. Last colonoscopy was 7 years ago notable for benign polyps. No personal or family history of colon cancer. On further history denies any recent gastrointestinal symptoms. No nausea, vomiting, abdominal pain, loss of appetite, unexplained weight loss, change in bowel habits, diarrhea, constipation. She occasionally notes some bright red blood per rectum. Patient History Medical History CRP elevated Endometriosis Hyperlipidemia Hypertension Kidney stones Type 2 diabetes mellitus Surgical History History of orthopedic surgery History of tonsillectomy Status post endometrial ablation Status post laparoscopy Family & Social History Family History Sister Breast cancer Mother Polycythemia vera Obesity Hypertension Diabetes mellitus Family/Other Colorectal cancer Loud snoring Obesity Hypertension Diabetes mellitus Heart disease Brother Diabetes mellitus Family/Other Loud snoring Obesity Diabetes mellitus Social History: household members none lives independently Yes caregiver/support person No Tobacco & Substance use: Smoking Status Former smoker alcohol intake current alcohol intake frequency 0-2 drinks per day Substance Use Type does not use Meds Home Medications and Allergies Home Medications Medication Instructions Recorded Confirmed Type aspirin 81 mg PO QPM #0 02/24/11 06/03/20 History cholecalciferol (vitamin D3) 50 2,000 unit PO DAILY 03/22/18 06/03/20 History mcg (2,000 unit) capsule epinephrine 0.3 mg IM PRN PRN 11/23/18 06/03/20 History alprazolam 0.5 mg tablet 0.5 mg PO SEE INSTRUCTIONS PRN #10 05/09/19 06/03/20 Rx tab albuterol sulfate 90 mcg/actuation 2 puff INHALATION Q4-6H PRN #8.5 11/13/19 06/03/20 Rx aerosol inhaler gram blood sugar diagnostic #100 each 12/27/19 05/08/20 Rx blood-glucose meter #1 each 12/27/19 05/08/20 Rx chlorthalidone 50 mg tablet 50 mg PO DAILY #90 tab 01/03/20 06/03/20 Rx atorvastatin 10 mg tablet 10 mg PO DAILY #30 tab 01/11/20 06/03/20 Rx losartan 100 mg tablet See Rx Instructions .ROUTE 04/29/20 06/03/20 Rx .COMPLEX #30 tab metoprolol succinate 200 mg See Rx Instructions .ROUTE 04/29/20 06/03/20 Rx tablet,extended release 24 hr .COMPLEX #180 tab fluticasone propionate 2 spray INTRANASAL DAILY 06/03/20 06/03/20 History Allergies Allergy/AdvReac Type Severity Reaction Status Date / Time amoxicillin [AMOXICILLIN] Allergy Mild HIVES Verified 06/03/20 08:22 Penicillins [PENICILLINS] Allergy Mild HIVES Verified 06/03/20 08:22 Sulfa (Sulfonamide Allergy Mild HIVES Verified 06/03/20 08:22 Antibiotics) [SULFA (SULFONAMIDE ANTIBIOTICS)] bee venom protein (honey bee) Allergy Unknown tongue Verified 06/03/20 08:22 [BEE VENOM PROTEIN (HONEY pain & BEE)] swelling soy [SOY] Allergy Unknown painful Verified 06/03/20 08:22 tongue Review of Systems Review of Systems Narrative: A 10 point review of systems is negative except as noted in the HPI Exam Vital Signs (past 8 hours): - 06/03/20 08:25 Temperature 97.1 F L Pulse Rate 70 Respiratory Rate 16 Blood Pressure 141/82 H Pulse Oximetry 98 Oxygen Delivery Method Room Air Oxygen Flow Rate 0 Narrative Exam Narrative: General-no acute distress, obese female HEENT-moist mucous membranes, no scleral icterus Neck-supple, no lymphadenopathy Chest- non labored respirations, clear to auscultation bilaterally Cardiac-regular rate no peripheral edema Abdomen-soft, nontender, non distended Extremities-warm, well perfused Neurological-alert and oriented, no focal deficits Assessment & Plan Assessment & Plan narrative: The patient requires colorectal screening and colonoscopy is recommended. Technical details were discussed. Risks, benefits, alternatives explained. Risks including but not limited to myocardial infarction, aspiration, bleeding, pain, missed lesion, incomplete examination, need for further radiographic studies, colonic perforation, and need for major abdominal surgery were discussed. All questions were answered to their satisfaction, and they are in agreement with this plan.
[2020-06-03] MEDS: MIDAZOLAM 5 MG/5 ML VIAL IV (09:37)
[2020-06-03] MEDS: fentaNYL 250 MCG/5 ML INJ IV (09:37)
--- NOTE | 2020-06-03 10:06 | PM.OP.ENDO ---
Operative Date/Time/Diagnoses Date of procedure: 06/03/20 Time of procedure: 10:07 Pre-op diagnosis: Personal history of colonic polyps Post-op diagnosis: other (Colonic polyps (ascending x2 and sigmoid)) Procedure & Clinicians Study performed: Colonoscopy Polypectomy Same procedure as scheduled: Yes Indications: 65-year-old female personal history of colonic polyps last colonoscopy 7 years ago here for screening Surgeon: Wil Hawthorne Procedure Notes Procedure in detail: Medications: Conscious sedation using 7mg IV midazolam and 200mcg IV of fentanyl The history and physical was performed/updated and the patient is ASA class is 2. The procedure was discussed in detail with the patient. Potential risks complications including infection, bleeding, missed diagnosis, perforation, need for surgery, and were explained. Their questions were answered and informed consent was obtained. Patient was brought to the procedure room and placed standard monitoring equipment. The patient's vital signs were monitored continuously throughout the entire procedure. Prior to starting time-out was performed. The patient was placed in the left lateral recumbent position. Procedural sedation was administered. Examination began with a thorough inspection of the perianal area there was no evidence of fissures, fistulae, or cutaneous malignancy, there were prolapsing internal hemorrhoids The colonoscopy scope was then placed into the anal canal and was advanced to the cecum, which was identified by the ileocecal valve, the appendiceal orifice and the confluence of the taenia. The scope was then slowly withdrawn examining colon thoroughly in all directions, irrigating it of any residual stool. two 5 mm polyps in the ascending colon removed with biopsy forceps 5 mm polyp in sigmoid colon removed with biopsy forceps Sigmoid diverticulosis Grade 2 internal hemorrhoids The patient tolerated the procedure well. They will be discharged once criteria are met. The prep was of good/excellent quality. The withdrawl time was 9 minutes. The sedation time was 29 minutes. Specimen(s): other (Ascending polyps x2, sigmoid polyp) Complications: none Impression: Colonic polyps Post-procedure Recommendations: Colonscopy in 5 years Disposition: same day surgery
--- NOTE | 2020-06-03 11:01 | SUR.PHASEII ---
Pt up and getting dressed now, gait steady no c/o.
--- NOTE | 2020-06-03 11:04 | SUR.PHASEII ---
Pt dressed now sitting in wc waiting on ride
== END 2020-06-03 11:31 | disposition home or self-care (01) ==
PROVIDERS: PCP Family Medicine; Referring Provider Family Medicine; Visit Provider Surgery
PROC: 0DJD8ZZ Inspection of Lower Intestinal Tract, Via Natural or Artificial Opening Endoscopic (ICD-10-PCS; CPT 45378; principal; 2020-06-03 09:15)
DX: Z12.11 Encounter for screening for malignant neoplasm of colon (principal); Z86.010 Personal history of colon polyps; E78.5 Hyperlipidemia, unspecified; I10 Essential (primary) hypertension; E11.9 Type 2 diabetes mellitus without complications; K64.1 Second degree hemorrhoids; K57.30 Diverticulosis of large intestine without perforation or abscess without bleeding
CPT/HCPCS: 45380; 99152; 99153; J2250; J3010

== ENCOUNTER → 2020-07-02 16:07 | Outpatient (CLI) | payer OTHER, SELFPAY ==
[2020-07-02 16:51] LABS: Hemoglobin A1C% w Est Avg Glu 6.4 % (4.0-6.0)
== END ==
PROVIDERS: PCP Family Medicine; Referring Provider Family Medicine; Visit Provider Family Medicine
DX: E11.9 Type 2 diabetes mellitus without complications (principal)
CPT/HCPCS: 36415; 83036

== ENCOUNTER → 2020-12-28 09:01 | Outpatient (CLI) | payer OTHER, SELFPAY ==
[2020-12-28 10:17] LABS: Alanine Aminotransferase 38 IU/L (<35); Albumin 4.1 g/dL (3.5-5.0); Albumin Globulin Ratio 1.4 (1.0-2.8); Alkaline Phosphatase 65 U/L (38-126); Aspartate Aminotransferase 38 IU/L (14-36); BUN Creatinine Ratio 23.3 (6-22); Bilirubin Total 0.7 mg/dL (0.2-1.3); Blood Urea Nitrogen 17 mg/dL (7-17); Calcium 9.4 mg/dL (8.4-10.2); Carbon Dioxide 30 mmol/L (22-32); Chloride 101 mmol/L (98-107); Cholesterol 150 mg/dL (140-199); Estimated Glomerular Filt Rate > 60.0 mL/min (>60); Globulin 2.9 g/dL (1.7-4.1); Glucose 136 mg/dL (80-110); HDL Cholesterol 41 mg/dL (40-60); HEMOLYSIS 16 (0-50); LDL Cholesterol Calculated 82 mg/dL (<100); Potassium 3.2 mmol/L (3.4-5.1); Sodium 140 mmol/L (137-145); Triglycerides 137 mg/dL (35-150)
[2020-12-28 10:24] LABS: Hemoglobin A1C% w Est Avg Glu 6.6 % (4.0-6.0)
[2020-12-28 10:52] LABS: Creatinine Urine Random 279.1 mg/dL
[2020-12-28 10:56] LABS: Microalbumi Creatinin Ratio Ur 63.4 ug/mg CR (<30); Microalbumin Urine Random 17.7 mg/dL (0-1.6)
== END ==
PROVIDERS: PCP Family Medicine; Referring Provider Family Medicine; Visit Provider Family Medicine
DX: E11.9 Type 2 diabetes mellitus without complications (principal)
CPT/HCPCS: 36415; 80053; 80061; 82043; 82570; 83036

== ENCOUNTER → 2021-01-17 10:55 | Outpatient (CLI) | payer OTHER, SELFPAY ==
[2021-01-17 11:27] LABS: COVID19 -Nasal RAPID Negative (Negative)
== END ==
PROVIDERS: PCP Family Medicine; Referring Provider Family Medicine; Visit Provider Family Medicine
DX: R06.02 Shortness of breath (principal); Z20.822 Contact with and (suspected) exposure to COVID-19
CPT/HCPCS: 87635; C9803

== ENCOUNTER → 2021-02-14 10:57 | Outpatient (CLI) | payer OTHER, SELFPAY ==
[2021-02-14 12:00] LABS: COVID19 -Nasal RAPID Negative (Negative)
== END ==
PROVIDERS: PCP Family Medicine; Referring Provider Internal Medicine; Visit Provider Internal Medicine
DX: Z20.822 Contact with and (suspected) exposure to COVID-19 (principal)
CPT/HCPCS: 87635; C9803

== ENCOUNTER → 2021-02-14 10:59 | Outpatient (CLI) | payer OTHER, SELFPAY ==
--- NOTE | 2021-02-19 09:11 | PM.PFT.1 ---
Pulmonary Function Test Referral & Results Date Patient Seen: 02/14/21 Requesting provider: Lorena Owens Results: The spirometry demonstrates an FVC of 2.96 L which is 99% of predicted. The FEV1 was measured at 2.26 L which is 99% of predicted. The FEV1/FVC ratio was 77 which is 99% of predicted. Following the administration of bronchodilator there was no appreciable change to above normal numbers. Lung volumes show an SVC of 3.08 L which is 110% of predicted. The diffusing capacity was measured at 27.16 which is 125% of predicted. The maximum voluntary ventilation was normal Interpretation: This study demonstrates normal pulmonary function
== END ==
PROVIDERS: PCP Family Medicine; Referring Provider Family Medicine; Visit Provider Family Medicine
DX: R06.02 Shortness of breath (principal); J98.8 Other specified respiratory disorders; Z87.891 Personal history of nicotine dependence; Z20.822 Contact with and (suspected) exposure to COVID-19
CPT/HCPCS: 87635; 94060; 94726; 94729; C9803

== ENCOUNTER → 2021-03-29 09:56 | Outpatient (CLI) | payer OTHER, SELFPAY ==
[2021-03-29 11:16] LABS: Hemoglobin A1C% w Est Avg Glu 6.4 % (4.0-6.0)
[2021-03-29 11:44] LABS: Alanine Aminotransferase 41 IU/L (<35); Albumin 4.2 g/dL (3.5-5.0); Albumin Globulin Ratio 1.8 (1.0-2.8); Alkaline Phosphatase 62 U/L (38-126); Aspartate Aminotransferase 31 IU/L (14-36); BUN Creatinine Ratio 22.4 (6-22); Bilirubin Total 0.8 mg/dL (0.2-1.3); Blood Urea Nitrogen 17 mg/dL (7-17); Calcium 9.6 mg/dL (8.4-10.2); Carbon Dioxide 34 mmol/L (22-32); Chloride 98 mmol/L (98-107); Estimated Glomerular Filt Rate > 60.0 mL/min (>60); Globulin 2.4 g/dL (1.7-4.1); Glucose 119 mg/dL (80-110); HEMOLYSIS < 15 (0-50); Potassium 4.1 mmol/L (3.4-5.1); Sodium 138 mmol/L (137-145); Total Protein 6.6 g/dL (6.3-8.2)
[2021-03-29 14:38] LABS: Creatinine Urine Random 242.5 mg/dL
[2021-03-29 14:43] LABS: Microalbumi Creatinin Ratio Ur 38.3 ug/mg CR (<30); Microalbumin Urine Random 9.3 mg/dL (0-1.6)
== END ==
PROVIDERS: PCP Family Medicine; Referring Provider Family Medicine; Visit Provider Family Medicine
DX: E11.9 Type 2 diabetes mellitus without complications (principal)
CPT/HCPCS: 36415; 80053; 82043; 82570; 83036

== ENCOUNTER → 2021-04-22 16:06 | Outpatient (CLI) | payer OTHER, SELFPAY ==
[2021-04-22 17:51] LABS: Free T4, Direct Thyroxine 1.05 ng/dL (0.78-2.19)
[2021-04-22 18:05] LABS: Erythrocyte Sedimentation Rate 13 MM/HR (0-20); Thyroid Stimulating Hormone 1.84 uIU/mL (0.47-4.68)
[2021-04-22 18:08] LABS: Ferritin 56 ng/mL (11-264)
== END ==
PROVIDERS: PCP Family Medicine; Referring Provider Physician Assistant Medical; Visit Provider Physician Assistant Medical
DX: L65.9 Nonscarring hair loss, unspecified (principal)
CPT/HCPCS: 36415; 82728; 84439; 84443; 85651

== ENCOUNTER → 2021-10-09 07:42 | Outpatient (CLI) | payer OTHER, SELFPAY ==
[2021-10-09 09:34] LABS: Alanine Aminotransferase 30 IU/L (<35); Albumin 4.4 g/dL (3.5-5.0); Albumin Globulin Ratio 1.7 (1.0-2.8); Alkaline Phosphatase 64 U/L (38-126); Aspartate Aminotransferase 28 IU/L (14-36); BUN Creatinine Ratio 27.8 (6-22); Bilirubin Total 0.7 mg/dL (0.2-1.3); Blood Urea Nitrogen 25 mg/dL (7-17); Calcium 9.4 mg/dL (8.4-10.2); Carbon Dioxide 29 mmol/L (22-32); Chloride 99 mmol/L (98-107); Estimated Glomerular Filt Rate > 60 mL/min (>60); Globulin 2.6 g/dL (1.7-4.1); Glucose 154 mg/dL (80-110); HEMOLYSIS < 15 (0-50); Potassium 4.3 mmol/L (3.4-5.1); Sodium 138 mmol/L (137-145)
== END ==
PROVIDERS: PCP Family Medicine; Referring Provider Family Medicine; Visit Provider Family Medicine
DX: E11.9 Type 2 diabetes mellitus without complications (principal); E78.5 Hyperlipidemia, unspecified; E66.01 Morbid (severe) obesity due to excess calories; I10 Essential (primary) hypertension
CPT/HCPCS: 36415; 80053; 83036

== ENCOUNTER → 2022-01-28 10:04 | Outpatient (CLI) | payer OTHER, SELFPAY ==
[2022-01-28 10:58] LABS: Add Manual Diff / Slide Review NO; Basophils Absolute Auto 100 /uL (0-100); Basophils Percent Auto 0.6 % (0-2); Eosinophils Absolute Auto 300 /uL (0-450); Hematocrit 43.4 % (36-46); Hemoglobin 14.4 g/dL (12.0-16.0); Lymphocytes Absolute Auto 1900 /uL (1100-4500); Mean Corpuscular HGB Conc 33.2 % (30-36); Mean Corpuscular Hemoglobin 28.6 PG (26-34); Monocytes Absolute Auto 700 /uL (0-900); Monocytes Percent Auto 6.8 % (3-14); Neutrophils Absolute Auto 6900 /uL (1500-7000); Neutrophils Percent Auto 70.6 % (50-75); Platelet Count 178 X10^3/uL (150-400); Red Blood Cell Count 5.04 X10^6/uL (4.0-5.2); Red Cell Distribution Width 14.3 % (11.6-14.8); White Blood Cell Count 9.8 X10^3/uL (4.5-11.0)
[2022-01-28 11:21] LABS: Blood Urea Nitrogen 19 mg/dL (7-17); Calcium 9.3 mg/dL (8.4-10.2); Carbon Dioxide 28 mmol/L (22-32); Chloride 100 mmol/L (98-107); Cholesterol 153 mg/dL (140-199); Estimated Glomerular Filt Rate > 60 mL/min (>60); Glucose 132 mg/dL (80-110); HDL Cholesterol 38 mg/dL (40-60); HEMOLYSIS < 15 (0-50); LDL Cholesterol Calculated 91 mg/dL (<100); Potassium 3.8 mmol/L (3.4-5.1); Sodium 137 mmol/L (137-145); Triglycerides 118 mg/dL (35-150)
[2022-01-28 11:29] LABS: Hemoglobin A1C% w Est Avg Glu 6.9 % (4.0-6.0)
== END ==
PROVIDERS: PCP Family Medicine; Referring Provider Family Medicine; Visit Provider Family Medicine
DX: E78.5 Hyperlipidemia, unspecified (principal); E11.9 Type 2 diabetes mellitus without complications; I10 Essential (primary) hypertension; E66.01 Morbid (severe) obesity due to excess calories
CPT/HCPCS: 36415; 80048; 80061; 83036; 85025

== ENCOUNTER → 2022-03-24 14:16 | Outpatient (CLI) | payer OTHER, SELFPAY ==
--- NOTE | 2022-03-31 17:10 | DIAB.MNT ---
Initial Diabetes Medical Nutrition Therapy Assessment Name: Flori Powell Date: 03/24/22 Time: 230-330p Dx: Type II Diabetes Provider: Roman Ruby presents for initial visit for T2DM. Recent hgA1c 6.9%. Historically <6.6%, with one lab value of 7% in 09/2021. Reports she primarily has questions regarding elevated FBG and reduced BG later in the day. States she is unclear why this happens. Reports Roman encouraged protein HS snack. She has not tried this yet. States she has been trying to lose wt by not eating past 6 or 7p. Reports h/o weight changes over the last 12 years. Wt got up to 230# after passed in accident. Then used wt loss meds (phentermine?) and lost 30#. More recent wt of 242#. States she has lost 5# with changes to her HTN meds and endorses increased energy. Reports allergy to soy products. Recently retired elementary education tutor. Diet Recall: 440-430a: low CHO eng muffin, egg, salad 12-2p: sourdough bread and turkey or fish and chips or leftovers 5-7p: chicken or fish with veggies and 1c pasta ; egg salad on eng muffin or sour dough ; cottage cheese and salad with chicken ; shrimp pasta or roll Anthropometrics: Ht: 62 Wt: 242# Physical Activity: 30-40 min walking 3-4 x per week. States she use to love walking, but now it feels like a chore with lung issues. Enjoys swimming. Self-Monitoring Blood Glucose: Reports FBG 140s, highest 150mg/dL, occasionally 130s. During the day 90-120 mg/dl. Diabetes Medications: none Pertinent Labs: 6.9% 01/2022 Past Medical History: (Last Reviewed 12/01/21 @ 16:24 by John Barajas MD) CRP elevated Endometriosis Family history of breast cancer (09/11/11) History of snoring Hyperlipidemia Hypertension Kidney stones Morbid obesity with body mass index (BMI) of 40.0 to 49.9 (Unknown) Nocturnal hypoxemia Obstructive sleep apnea (~05/2020) Snoring Type 2 diabetes mellitus Nutrition Rx: Carbohydrates: Meal:30g Snack:15-30g Nutrition Diagnosis: - Predicted inadequate CHO intake r/t long period of fasting may exacerbate gluconeogenesis overnight aeb increased FBG and diet recall - Suboptimal physical activity r/t <150 min activity per week due to lung health aeb pt report Intervention: This participant was very receptive. Provided appropriate educational handouts. Discussed the following topics: Gluconeogenesis and trying paired or protein HS snack Ways for her to engage in physical activity she enjoys Plate Method Recommended servings for carbohydrates at meals and snacks Created SMART goals for patient self-care and success. Goals: Try HS snack Sign up for swim Walk 4 days per week Follow-up: ELIAS FIELDS follow-up to be scheduled upon her return. Plans to be out of state until June. States she would like to call for follow-up at that time. Wendy Aggarwal RDN, [facility] Certified Diabetes Care and Stage Setting Painter Apprentice P: [phone] Thank you for this referral
== END ==
PROVIDERS: PCP Family Medicine; Referring Provider Family Medicine; Visit Provider Family Medicine
DX: E11.9 Type 2 diabetes mellitus without complications (principal); Z71.3 Dietary counseling and surveillance
CPT/HCPCS: 97802

== ENCOUNTER → 2022-07-16 13:52 | Outpatient (CLI) | payer MEDICARE, OTHER, SELFPAY ==
[2022-07-16 15:00] LABS: Hemoglobin A1C% w Est Avg Glu 6.7 % (4.0-6.0)
== END ==
PROVIDERS: PCP Family Medicine; Referring Provider Family Medicine; Visit Provider Family Medicine
DX: E11.9 Type 2 diabetes mellitus without complications (principal)
CPT/HCPCS: 83036

== ENCOUNTER → 2022-10-07 08:11 | Outpatient (CLI) | payer MEDICARE, OTHER, SELFPAY ==
[2022-10-07 10:16] LABS: Alanine Aminotransferase 24 IU/L (<35); Albumin Globulin Ratio 1.5 (1.0-2.8); Alkaline Phosphatase 65 U/L (38-126); Aspartate Aminotransferase 26 IU/L (14-36); BUN Creatinine Ratio 27.1 (6-22); Bilirubin Total 0.5 mg/dL (0.2-1.3); Blood Urea Nitrogen 23 mg/dL (7-17); Calcium 9.5 mg/dL (8.4-10.2); Carbon Dioxide 32 mmol/L (22-32); Chloride 97 mmol/L (98-107); Cholesterol 150 mg/dL (140-199); Estimated Glomerular Filt Rate > 60 mL/min (>60); Globulin 2.7 g/dL (1.7-4.1); Glucose 149 mg/dL (80-110); HDL Cholesterol 40 mg/dL (40-60); HEMOLYSIS < 15 (0-50); LDL Cholesterol Calculated 84 mg/dL (<100); Sodium 138 mmol/L (137-145); Total Protein 6.7 g/dL (6.3-8.2); Triglycerides 132 mg/dL (35-150)
[2022-10-07 10:18] LABS: Potassium 3.8 mmol/L (3.4-5.1)
[2022-10-08 08:16] LABS: Creatinine Urine Random 171.5 mg/dL
[2022-10-08 08:21] LABS: Microalbumi Creatinin Ratio Ur 7.5 ug/mg CR (<30); Microalbumin Urine Random 1.3 mg/dL (0-1.6)
== END ==
PROVIDERS: PCP Family Medicine; Referring Provider Family Medicine; Visit Provider Family Medicine
DX: E11.9 Type 2 diabetes mellitus without complications (principal); E78.5 Hyperlipidemia, unspecified; I10 Essential (primary) hypertension
CPT/HCPCS: 36415; 80053; 80061; 82043; 82570; 83036

== ENCOUNTER → 2022-10-23 09:55 | Outpatient (CLI) | payer MEDICARE, OTHER, SELFPAY ==
[2022-10-23 14:59] LABS: Blood Urea Nitrogen 20 mg/dL (7-17); Calcium 9.2 mg/dL (8.4-10.2); Carbon Dioxide 27 mmol/L (22-32); Chloride 100 mmol/L (98-107); Estimated Glomerular Filt Rate > 60 mL/min (>60); Glucose 141 mg/dL (80-110); HEMOLYSIS < 15 (0-50); Sodium 137 mmol/L (137-145)
== END ==
PROVIDERS: PCP Family Medicine; Referring Provider Family Medicine; Visit Provider Family Medicine
DX: E11.9 Type 2 diabetes mellitus without complications (principal); I10 Essential (primary) hypertension
CPT/HCPCS: 36415; 80048

== ENCOUNTER → 2023-01-04 14:23 | Outpatient (CLI) | payer MEDICARE, OTHER, SELFPAY ==
[2023-01-05 07:09] LABS: Labcorp Hemoglobin (Hb) A1c 6.9 % (4.8-5.6)
== END ==
PROVIDERS: PCP Family Medicine; Referring Provider Family Medicine; Visit Provider Family Medicine
DX: E11.9 Type 2 diabetes mellitus without complications (principal)
CPT/HCPCS: 36415; 83036

== ENCOUNTER → 2023-08-10 08:16 | Outpatient (CLI) | payer MEDICARE, OTHER, SELFPAY ==
[2023-08-10 08:50] LABS: Alanine Aminotransferase 41 IU/L (<35); Albumin 4.4 g/dL (3.5-5.0); Albumin Globulin Ratio 1.7 (1.0-2.8); Alkaline Phosphatase 56 U/L (38-126); Aspartate Aminotransferase 29 IU/L (14-36); BUN Creatinine Ratio 20.7 (6-22); Bilirubin Total 0.7 mg/dL (0.2-1.3); Blood Urea Nitrogen 19 mg/dL (7-17); Calcium 9.3 mg/dL (8.4-10.2); Carbon Dioxide 28 mmol/L (22-32); Chloride 98 mmol/L (98-107); Cholesterol 152 mg/dL (140-199); Estimated Glomerular Filt Rate > 60 mL/min (>60); Globulin 2.6 g/dL (1.7-4.1); Glucose 151 mg/dL (80-110); HDL Cholesterol 45 mg/dL (40-60); HEMOLYSIS < 15 (0-50); LDL Cholesterol Calculated 81 mg/dL (<100); Potassium 3.9 mmol/L (3.4-5.1); Sodium 137 mmol/L (137-145); Triglycerides 130 mg/dL (35-150)
[2023-08-10 10:40] LABS: Creatinine Urine Random 204.1 mg/dL
[2023-08-10 10:44] LABS: Microalbumi Creatinin Ratio Ur 43.6 ug/mg CR (<30); Microalbumin Urine Random 8.9 mg/dL (0-1.6)
[2023-08-11 12:09] LABS: Labcorp Hemoglobin (Hb) A1c 6.5 % (4.8-5.6)
== END ==
PROVIDERS: PCP Family Medicine; Referring Provider Family Medicine; Visit Provider Family Medicine
DX: E11.9 Type 2 diabetes mellitus without complications (principal); I10 Essential (primary) hypertension; E78.5 Hyperlipidemia, unspecified
CPT/HCPCS: 36415; 80053; 80061; 82043; 82570; 83036

== ENCOUNTER → 2024-03-09 12:31 | Outpatient (CLI) | payer MEDICARE, OTHER, SELFPAY ==
[2024-03-09 15:38] LABS: Hemoglobin A1C% w Est Avg Glu 5.9 % (4.0-6.0)
== END ==
PROVIDERS: PCP Family Medicine; Referring Provider Family Medicine; Visit Provider Family Medicine
DX: E11.9 Type 2 diabetes mellitus without complications (principal)
CPT/HCPCS: 36415; 83036

== ENCOUNTER → 2024-06-07 08:13 | Outpatient (CLI) | payer MEDICARE, OTHER, SELFPAY ==
[2024-06-07 10:09] LABS: Alanine Aminotransferase 32 IU/L (<35); Albumin 4.3 g/dL (3.5-5.0); Alkaline Phosphatase 70 U/L (38-126); Aspartate Aminotransferase 29 IU/L (14-36); BUN Creatinine Ratio 21.4 (6-22); Bilirubin Total 0.6 mg/dL (0.2-1.3); Blood Urea Nitrogen 21 mg/dL (7-17); Calcium 9.7 mg/dL (8.4-10.2); Carbon Dioxide 27 mmol/L (22-32); Chloride 98 mmol/L (98-107); Cholesterol 133 mg/dL (140-199); Estimated Glomerular Filt Rate > 60 mL/min (>60); Globulin 2.2 g/dL (1.7-4.1); Glucose 105 mg/dL (80-110); HDL Cholesterol 40 mg/dL (40-60); HEMOLYSIS < 15 (0-50); LDL Cholesterol Calculated 72 mg/dL (<100); Potassium 4.2 mmol/L (3.4-5.1); Sodium 134 mmol/L (137-145); Total Protein 6.5 g/dL (6.3-8.2); Triglycerides 103 mg/dL (35-150)
[2024-06-07 10:13] LABS: Hemoglobin A1C% w Est Avg Glu 5.9 % (4.0-6.0)
[2024-06-07 11:03] LABS: Creatinine Urine Random 135.24 mg/dL
[2024-06-07 11:08] LABS: Microalbumin Urine Random 1.9 mg/dL (0-1.6)
== END ==
PROVIDERS: PCP Family Medicine; Referring Provider Family Medicine; Visit Provider Family Medicine
DX: E11.9 Type 2 diabetes mellitus without complications (principal)
CPT/HCPCS: 36415; 80053; 80061; 82043; 82570; 83036